=== PATIENT | female | born 1940 | race Caucasian/White ===

== ENCOUNTER 2022-09-23 11:35 | Observation (INO) | payer OTHER ==
[2022-09-23 11:45] VITALS: BMI 23.6
[2022-09-23] MEDS ORDERED: ACETAMINOPHEN 1000 MG/100 ML BAG IVPB ONE (12:56)
[2022-09-23] MEDS ORDERED: ACETAMINOPHEN INJECTION 100 ML IVPB ONE (13:11)
[2022-09-23 13:20] LABS: BASO % 0.2 % (0-2.0); HEMATOCRIT 36.6 % (32.4-45.2); HEMOGLOBIN 12.3 GM/dL (10.7-15.3); LYMPH % 5.8 % (8-40); MCH 29.5 pg (25.7-33.7); MCHC 33.6 g/dl (32.0-36.0); MEAN CELL VOLUME 87.9 fl (80-96); MEAN PLT VOLUME 7.1 fl (7.5-11.1); MONO % 7.7 % (3.8-10.2); NEUT % 86.3 % (42.8-82.8); PLATELET COUNT 229 10^3/uL (134-434); RBC 4.17 M/mm3 (3.60-5.2); WHITE BLOOD COUNT 10.4 K/mm3 (4.0-10.0)
[2022-09-23 13:51] LABS: BLOOD UREA NITROGEN 18.6 mg/dL (7-18); CALCIUM 8.9 mg/dL (8.5-10.1)
[2022-09-23 13:52] LABS: ALBUMIN 3.7 g/dl (3.4-5.0)
[2022-09-23 13:54] LABS: CREATININE 0.7 mg/dL (0.55-1.3)
[2022-09-23 13:56] LABS: TOT PROT 7.1 g/dl (6.4-8.2)
[2022-09-23 14:48] LABS: EPI CELLS 22 /uL (0-25.1); HYALINE CASTS 3 /uL (0-3.1); PH,URINE 6.5 (5.0-8.0); URINE APPEARANCE CLOUDY; URINE BACTERIA 1550 /uL (0-1359); URINE BILIRUBIN NEGATIVE (NEGATIVE); URINE COLOR YELLOW; URINE GLUCOSE (UA) NEGATIVE (NEGATIVE); URINE KETONE 2+ (NEGATIVE); URINE LEUK ESTERASE 2+ (NEGATIVE); URINE NITRITE NEGATIVE (NEGATIVE); URINE PROTEIN 2+ (NEGATIVE); URINE RBC 70 /uL (0-23.9); URINE WBC 301 /uL (0-25.8)
[2022-09-23 15:14] LABS: MAGNESIUM 2.2 mg/dL (1.8-2.4)
[2022-09-23 15:18] LABS: PHOSPHOROUS 1.9 mg/dL (2.5-4.9)
[2022-09-23] MEDS ORDERED: CEFTRIAXONE 1,000 MG in DEXTROSE 5%-WATER - 50 ML IVPB ONE (15:55)
[2022-09-23] MEDS ORDERED: CEFTRIAXONE 1 GM/50 ML BAG ONE (16:00)
[2022-09-23] MEDS ORDERED: CHLORTHALIDONE 25 MG TABLET PO SCH (16:00)
[2022-09-23] MEDS ORDERED: oxyCODONE HCL 5 MG TABLET PO PRN (16:06)
[2022-09-23] MEDS ORDERED: ACETAMINOPHEN 325 MG TABLET (FP) PO PRN (16:07)
[2022-09-23] MEDS ORDERED: HEPARIN NA (PORCINE) 5,000 UNITS/ML 1ML VIAL ONE (22:07)
[2022-09-23] MEDS ORDERED: ATORVASTATIN CA 40 MG TABLET (FP) ONE (22:08)
[2022-09-23] MEDS: ATORVASTATIN CA 40 MG TABLET (FP) PO SCH (22:15)
[2022-09-23] MEDS: HEPARIN NA (PORCINE) 5,000 UNITS/ML 1ML VIAL SQ SCH (22:15)
[2022-09-24 07:05] LABS: BASO % 0.6 % (0-2.0); EOS % 1.1 % (0-4.5); HEMATOCRIT 34.6 % (32.4-45.2); HEMOGLOBIN 11.8 GM/dL (10.7-15.3); MCH 30.1 pg (25.7-33.7); MCHC 34.2 g/dl (32.0-36.0); MEAN CELL VOLUME 87.9 fl (80-96); MEAN PLT VOLUME 7.4 fl (7.5-11.1); MONO % 6.7 % (3.8-10.2); NEUT % 82.6 % (42.8-82.8); PLATELET COUNT 214 10^3/uL (134-434); RBC 3.93 M/mm3 (3.60-5.2); RDW 12.8 % (11.6-15.6); WHITE BLOOD COUNT 9.3 K/mm3 (4.0-10.0)
[2022-09-24 07:19] LABS: CALCIUM 8.2 mg/dL (8.5-10.1)
[2022-09-24 07:23] LABS: CREATININE 0.5 mg/dL (0.55-1.3)
[2022-09-24] MEDS ORDERED: POTASSIUM CHLORIDE TABS 20 MEQ TABLET.ER (FP) PO SCH (10:00)
[2022-09-24] MEDS ORDERED: LOSARTAN POTASSIUM 50 MG TABLET PO SCH (10:00)
[2022-09-24] MEDS ORDERED: CHLORTHALIDONE 25 MG TABLET PO SCH (10:00)
[2022-09-24] MEDS ORDERED: POTASSIUM CHLORIDE TABS 10 MEQ TABLET.ER (FP) PO SCH ×2 (10:00)
[2022-09-24] MEDS: HEPARIN NA (PORCINE) 5,000 UNITS/ML 1ML VIAL SQ SCH ×2 (10:31→21:32)
[2022-09-24] MEDS: LEVOTHYROXINE NA 25 MCG TABLET (FP) PO SCH (10:31)
[2022-09-24] MEDS: KCL 10 MEQ IVPB 10 MEQ/100 ML INFUS.BAG IVPB SCH ×2 (10:31→11:16)
[2022-09-24] MEDS: ATORVASTATIN CA 40 MG TABLET (FP) PO SCH (21:32)
[2022-09-25] MEDS: LEVOTHYROXINE NA 25 MCG TABLET (FP) PO SCH (09:51)
[2022-09-25] MEDS: HEPARIN NA (PORCINE) 5,000 UNITS/ML 1ML VIAL SQ SCH ×2 (09:51→21:18)
[2022-09-25] MEDS: ATORVASTATIN CA 40 MG TABLET (FP) PO SCH (21:18)
[2022-09-26 07:21] LABS: EOS % 5.3 % (0-4.5); HEMOGLOBIN 12.3 GM/dL (10.7-15.3); LYMPH % 21.4 % (8-40); MCH 29.8 pg (25.7-33.7); MCHC 34.1 g/dl (32.0-36.0); MEAN CELL VOLUME 87.5 fl (80-96); MEAN PLT VOLUME 7.5 fl (7.5-11.1); MONO % 11.1 % (3.8-10.2); NEUT % 61.2 % (42.8-82.8); PLATELET COUNT 275 10^3/uL (134-434); RBC 4.11 M/mm3 (3.60-5.2); RDW 12.7 % (11.6-15.6); WHITE BLOOD COUNT 6.8 K/mm3 (4.0-10.0)
[2022-09-26] MEDS ORDERED: SODIUM CHLORIDE 0.45% 1,000 ML IV SCH (07:45)
[2022-09-26] MEDS ORDERED: PIPERACILLIN/TAZOB 3.375 GM 3.375 GM in DEXTROSE 5%-WATER - 50 ML IVPB SCH (07:45)
[2022-09-26 07:56] LABS: CHLORIDE 106 mmol/L (98-107); SODIUM 138 mmol/L (136-145)
[2022-09-26 07:58] LABS: ANION GAP 5 MMOL/L (8-16); CALCIUM 8.5 mg/dL (8.5-10.1); CO2 28 mmol/L (21-32); GLUCOSE,RANDOM 99 mg/dL (74-106); MAGNESIUM 2.2 mg/dL (1.8-2.4)
[2022-09-26 07:59] LABS: BLOOD UREA NITROGEN 11.3 mg/dL (7-18)
[2022-09-26 08:02] LABS: CREATININE 0.6 mg/dL (0.55-1.3); PHOSPHOROUS 3.2 mg/dL (2.5-4.9); SGPT/ALT 30 U/L (13-61)
[2022-09-26 08:03] LABS: BILIRUBIN,TOTAL 0.6 mg/dL (0.2-1); SGOT/AST 33 U/L (15-37); TOT PROT 6.2 g/dl (6.4-8.2)
[2022-09-26 08:04] LABS: ALK PHOS 79 U/L (45-117)
[2022-09-26] MEDS: HEPARIN NA (PORCINE) 5,000 UNITS/ML 1ML VIAL SQ SCH ×2 (09:49→21:14)
[2022-09-26] MEDS: amLODIPine BESYLATE 5 MG TABLET (FP) PO SCH (09:49)
[2022-09-26] MEDS: LEVOTHYROXINE NA 25 MCG TABLET (FP) PO SCH (09:49)
[2022-09-26] MEDS ORDERED: CEFTRIAXONE 1 GM in DEXTROSE 5%-WATER - 50 ML IVPB SCH (10:00)
[2022-09-26] MEDS: ACETAMINOPHEN 325 MG TABLET (FP) PO PRN (14:31)
[2022-09-26] MEDS: ATORVASTATIN CA 40 MG TABLET (FP) PO SCH (21:57)
[2022-09-27 07:47] LABS: ALBUMIN 2.9 g/dl (3.4-5.0); BLOOD UREA NITROGEN 11.8 mg/dL (7-18); CALCIUM 8.5 mg/dL (8.5-10.1); MAGNESIUM 2.1 mg/dL (1.8-2.4)
[2022-09-27 07:50] LABS: CREATININE 0.5 mg/dL (0.55-1.3); PHOSPHOROUS 3.4 mg/dL (2.5-4.9)
[2022-09-27 07:51] LABS: BILIRUBIN,TOTAL 0.4 mg/dL (0.2-1); TOT PROT 6.1 g/dl (6.4-8.2)
[2022-09-27 07:52] LABS: BASO % 1.2 % (0-2.0); EOS % 6.1 % (0-4.5); HEMATOCRIT 36.3 % (32.4-45.2); HEMOGLOBIN 12.4 GM/dL (10.7-15.3); LYMPH % 29.1 % (8-40); MCH 30.7 pg (25.7-33.7); MCHC 34.1 g/dl (32.0-36.0); MEAN PLT VOLUME 7.6 fl (7.5-11.1); MONO % 11.4 % (3.8-10.2); NEUT % 52.2 % (42.8-82.8); PLATELET COUNT 310 10^3/uL (134-434); RBC 4.03 M/mm3 (3.60-5.2); RDW 12.6 % (11.6-15.6); WHITE BLOOD COUNT 6.5 K/mm3 (4.0-10.0)
[2022-09-27] MEDS: amLODIPine BESYLATE 5 MG TABLET (FP) PO SCH (10:51)
[2022-09-27] MEDS: LEVOTHYROXINE NA 25 MCG TABLET (FP) PO SCH (10:51)
[2022-09-27] MEDS: HEPARIN NA (PORCINE) 5,000 UNITS/ML 1ML VIAL SQ SCH ×2 (10:51→21:29)
[2022-09-27] MEDS: ATORVASTATIN CA 40 MG TABLET (FP) PO SCH (21:29)
[2022-09-28 07:09] LABS: BASO % 1.1 % (0-2.0); EOS % 4.9 % (0-4.5); HEMATOCRIT 33.2 % (32.4-45.2); HEMOGLOBIN 11.5 GM/dL (10.7-15.3); LYMPH % 26.1 % (8-40); MCH 30.9 pg (25.7-33.7); MCHC 34.7 g/dl (32.0-36.0); MEAN PLT VOLUME 7.4 fl (7.5-11.1); MONO % 10.2 % (3.8-10.2); NEUT % 57.7 % (42.8-82.8); PLATELET COUNT 317 10^3/uL (134-434); RBC 3.72 M/mm3 (3.60-5.2); WHITE BLOOD COUNT 7.3 K/mm3 (4.0-10.0)
[2022-09-28 07:24] LABS: CALCIUM 8.8 mg/dL (8.5-10.1)
[2022-09-28 07:25] LABS: ALBUMIN 2.8 g/dl (3.4-5.0); BLOOD UREA NITROGEN 13.2 mg/dL (7-18); MAGNESIUM 2.1 mg/dL (1.8-2.4)
[2022-09-28 07:28] LABS: CREATININE 0.6 mg/dL (0.55-1.3); PHOSPHOROUS 3.4 mg/dL (2.5-4.9)
[2022-09-28 07:30] LABS: BILIRUBIN,TOTAL 0.5 mg/dL (0.2-1)
[2022-09-28] MEDS: LEVOTHYROXINE NA 25 MCG TABLET (FP) PO SCH (10:06)
[2022-09-28] MEDS: HEPARIN NA (PORCINE) 5,000 UNITS/ML 1ML VIAL SQ SCH ×2 (10:06→21:16)
[2022-09-28] MEDS: ATORVASTATIN CA 40 MG TABLET (FP) PO SCH (21:16)
[2022-09-28] MEDS: ACETAMINOPHEN 325 MG TABLET (FP) PO PRN (21:23)
[2022-09-29] MEDS: HEPARIN NA (PORCINE) 5,000 UNITS/ML 1ML VIAL SQ SCH (10:06)
[2022-09-29] MEDS: LEVOTHYROXINE NA 25 MCG TABLET (FP) PO SCH (10:07)
[2022-09-29] MEDS: ACETAMINOPHEN 325 MG TABLET (FP) PO PRN (21:03)
[2022-09-29] MEDS: ASPIRIN 81 MG CHEWABLE TABLETS PO SCH (21:04)
[2022-09-29] MEDS: ATORVASTATIN CA 40 MG TABLET (FP) PO SCH (21:04)
[2022-09-30] MEDS: LEVOTHYROXINE NA 25 MCG TABLET (FP) PO SCH (06:31)
[2022-09-30] MEDS: MULTIVITAMINS (DAILY MVI) TABLET (FP) PO SCH (09:37)
[2022-09-30] MEDS: ENOXAPARIN NA (PORCINE) 40 MG/0.4 ML DISP.SYRIN SQ SCH (09:37)
[2022-09-30] MEDS: ASPIRIN 81 MG CHEWABLE TABLETS PO SCH (21:57)
[2022-09-30] MEDS: ATORVASTATIN CA 40 MG TABLET (FP) PO SCH (21:57)
[2022-10-01 06:16] VITALS: TEMP 98
[2022-10-01] MEDS: LEVOTHYROXINE NA 25 MCG TABLET (FP) PO SCH (06:25)
[2022-10-01 07:27] LABS: BASO % 1.2 % (0-2.0); EOS % 4.9 % (0-4.5); HEMATOCRIT 36.3 % (32.4-45.2); HEMOGLOBIN 12.4 GM/dL (10.7-15.3); LYMPH % 29.4 % (8-40); MCH 30.1 pg (25.7-33.7); MEAN CELL VOLUME 88.7 fl (80-96); MEAN PLT VOLUME 6.9 fl (7.5-11.1); MONO % 10.7 % (3.8-10.2); NEUT % 53.8 % (42.8-82.8); PLATELET COUNT 373 10^3/uL (134-434); RDW 13.1 % (11.6-15.6); WHITE BLOOD COUNT 7.3 K/mm3 (4.0-10.0)
[2022-10-01 07:53] LABS: BLOOD UREA NITROGEN 13.4 mg/dL (7-18)
[2022-10-01 07:56] LABS: CREATININE 0.7 mg/dL (0.55-1.3)
[2022-10-01 09:19] VITALS: BP 113/58; PULSE 80; RESP 18
[2022-10-01] MEDS: ENOXAPARIN NA (PORCINE) 40 MG/0.4 ML DISP.SYRIN SQ SCH (09:23)
[2022-10-01] MEDS: MULTIVITAMINS (DAILY MVI) TABLET (FP) PO SCH (09:24)
== END 2022-10-01 15:20 | disposition home health service (06) ==
LOC: JER 11:35 → JERBED 13:35 → JICU 23:19 → J2W 23:38
PROVIDERS: ADMIT Internal Medicine; ATTEND Internal Medicine
PROC: 3E033NZ Introduction of Analgesics, Hypnotics, Sedatives into Peripheral Vein, Percutaneous Approach (ICD-10-PCS; principal; 2022-09-23)
PROC: 3E03329 Introduction of Other Anti-infective into Peripheral Vein, Percutaneous Approach (ICD-10-PCS; 2022-09-23)
PROC: 3E023GC Introduction of Other Therapeutic Substance into Muscle, Percutaneous Approach (ICD-10-PCS; 2022-09-23)
PROC: 3E0337Z Introduction of Electrolytic and Water Balance Substance into Peripheral Vein, Percutaneous Approach (ICD-10-PCS; 2022-09-23)
DX: N39.0 Urinary tract infection, site not specified (principal); S42.302A Unspecified fracture of shaft of humerus, left arm, initial encounter for closed fracture; I65.29 Occlusion and stenosis of unspecified carotid artery; W18.39XA Other fall on same level, initial encounter; Y93.89 Activity, other specified; Y92.002 Bathroom of unspecified non-institutional (private) residence as the place of occurrence of the external cause; E03.9 Hypothyroidism, unspecified; Z87.891 Personal history of nicotine dependence; E78.00 Pure hypercholesterolemia, unspecified; R94.31 Abnormal electrocardiogram [ECG] [EKG]
CPT/HCPCS: 0241U-QW; 36415; 70450-TC; 71045-TC-FY; 71250-TC; 72125-TC; 73030-TC-LT-FY; 73060-TC-LT-FY; 73070-TC-LT-FY; 73090-TC-LT-FY; 73110-TC-LT-FY; 80048; 80053; 81003; 82550; 82553; 82607; 82746; 83735; 83880; 84100; 84443; 84484; 85025; 87086; 87186; 93005; 93010; 93306-TC; 93880-TC; 95816; 96361; 96365; 96366; 96368; 96372; 96375; 97116-GP; 97162-GP; 99285-25; C9803-CS; G0378; J1644; U0003; U0005

== ENCOUNTER 2023-01-05 14:29 | Inpatient (IN) | payer OTHER ==
[2023-01-05] MEDS ORDERED: MIDAZOLAM HCL 2 MG/2 ML SINGLE DOSE VIAL ONE (15:16)
[2023-01-05 15:41] LABS: BASO % 0.9 % (0-2.0); EOS % 0.7 % (0-4.5); HEMATOCRIT 38.8 % (32.4-45.2); HEMOGLOBIN 13.1 GM/dL (10.7-15.3); MCH 30.2 pg (25.7-33.7); MCHC 33.7 g/dl (32.0-36.0); MEAN CELL VOLUME 89.7 fl (80-96); MEAN PLT VOLUME 7.6 fl (7.5-11.1); MONO % 6.4 % (3.8-10.2); PLATELET COUNT 269 10^3/uL (134-434); RBC 4.33 M/mm3 (3.60-5.2); RDW 13.3 % (11.6-15.6); WHITE BLOOD COUNT 6.4 K/mm3 (4.0-10.0)
[2023-01-05 15:48] LABS: INR 1.02 (0.83-1.09); PROTHROMBIN TIME (PATIENT) 11.8 SEC (9.7-13.0)
[2023-01-05 15:51] LABS: ACTIVATED PTT 28.2 SECONDS (25.2-36.5)
[2023-01-05 16:00] LABS: ALBUMIN 3.9 g/dl (3.4-5.0); BLOOD UREA NITROGEN 11.8 mg/dL (7-18)
[2023-01-05 16:03] LABS: CREATININE 0.7 mg/dL (0.55-1.3)
[2023-01-05 16:04] LABS: TOT PROT 7.7 g/dl (6.4-8.2)
[2023-01-05 16:05] LABS: BILIRUBIN,TOTAL 0.4 mg/dL (0.2-1)
[2023-01-05 16:30] LABS: URINE APPEARANCE CLEAR; URINE BILIRUBIN NEGATIVE (NEGATIVE); URINE COLOR YELLOW; URINE GLUCOSE (UA) NEGATIVE (NEGATIVE); URINE KETONE 1+ (NEGATIVE); URINE LEUK ESTERASE NEGATIVE (NEGATIVE); URINE NITRITE NEGATIVE (NEGATIVE); URINE PROTEIN TRACE (NEGATIVE); URINE UROBILINOGEN 0.2 mg/dL (0.2-1.0)
[2023-01-05] MEDS ORDERED: MIDAZOLAM HCL 2 MG/2 ML SINGLE DOSE VIAL IVPUSH ONE (16:43)
[2023-01-05] MEDS: levETIRAcetam 500 MG TABLET (FP) PO SCH (22:26)
[2023-01-05] MEDS: ATORVASTATIN CA 40 MG TABLET (FP) PO SCH (22:26)
[2023-01-05] MEDS: ASPIRIN 81 MG CHEWABLE TABLETS PO SCH (22:27)
[2023-01-06 06:40] LABS: BASO % 0.9 % (0-2.0); EOS % 2.4 % (0-4.5); HEMATOCRIT 35.5 % (32.4-45.2); LYMPH % 26.7 % (8-40); MCH 30.3 pg (25.7-33.7); MCHC 33.8 g/dl (32.0-36.0); MEAN CELL VOLUME 89.4 fl (80-96); MEAN PLT VOLUME 7.3 fl (7.5-11.1); MONO % 8.9 % (3.8-10.2); NEUT % 61.1 % (42.8-82.8); PLATELET COUNT 247 10^3/uL (134-434); RBC 3.97 M/mm3 (3.60-5.2); RDW 12.8 % (11.6-15.6); WHITE BLOOD COUNT 5.9 K/mm3 (4.0-10.0)
[2023-01-06 06:58] LABS: POTASSIUM 3.2 mmol/L (3.5-5.1)
[2023-01-06] MEDS: LEVOTHYROXINE NA 25 MCG TABLET (FP) PO SCH (07:00)
[2023-01-06 07:01] LABS: CALCIUM 8.7 mg/dL (8.5-10.1)
[2023-01-06 07:02] LABS: ALBUMIN 3.3 g/dl (3.4-5.0); BLOOD UREA NITROGEN 10.7 mg/dL (7-18); MAGNESIUM 2.1 mg/dL (1.8-2.4)
[2023-01-06 07:05] LABS: CREATININE 0.5 mg/dL (0.55-1.3)
[2023-01-06 07:06] LABS: TOT PROT 6.5 g/dl (6.4-8.2)
[2023-01-06] MEDS: amLODIPine BESYLATE 5 MG TABLET (FP) PO SCH ×2 (09:06→09:20)
[2023-01-06] MEDS: MULTIVITAMINS (DAILY MVI) TABLET (FP) PO SCH (09:06)
[2023-01-06] MEDS: ENOXAPARIN NA (PORCINE) 40 MG/0.4 ML DISP.SYRIN SQ SCH (09:06)
[2023-01-06] MEDS: levETIRAcetam 500 MG TABLET (FP) PO SCH ×2 (09:06→21:45)
[2023-01-06] MEDS: KCL 10 MEQ IVPB 10 MEQ/100 ML INFUS.BAG IVPB SCH ×2 (09:06→11:25)
[2023-01-06] MEDS ORDERED: CHLORTHALIDONE 25 MG TABLET PO SCH (10:00)
[2023-01-06] MEDS ORDERED: SODIUM CHLORIDE 250 ML IV STA (11:06)
[2023-01-06] MEDS: ATORVASTATIN CA 40 MG TABLET (FP) PO SCH (21:45)
[2023-01-06] MEDS: ASPIRIN 81 MG CHEWABLE TABLETS PO SCH (21:45)
[2023-01-07] MEDS: LEVOTHYROXINE NA 25 MCG TABLET (FP) PO SCH (06:01)
[2023-01-07 08:08] LABS: BASO % 0.9 % (0-2.0); EOS % 5.3 % (0-4.5); HEMATOCRIT 37.3 % (32.4-45.2); HEMOGLOBIN 12.4 GM/dL (10.7-15.3); LYMPH % 24.3 % (8-40); MCH 30.1 pg (25.7-33.7); MCHC 33.3 g/dl (32.0-36.0); MEAN CELL VOLUME 90.4 fl (80-96); MEAN PLT VOLUME 7.7 fl (7.5-11.1); MONO % 6.4 % (3.8-10.2); NEUT % 63.1 % (42.8-82.8); PLATELET COUNT 249 10^3/uL (134-434); RBC 4.13 M/mm3 (3.60-5.2); WHITE BLOOD COUNT 5.1 K/mm3 (4.0-10.0)
[2023-01-07 08:30] LABS: POTASSIUM 3.6 mmol/L (3.5-5.1)
[2023-01-07 08:37] LABS: CALCIUM 9.4 mg/dL (8.5-10.1)
[2023-01-07 08:38] LABS: ALBUMIN 3.5 g/dl (3.4-5.0); BLOOD UREA NITROGEN 8.4 mg/dL (7-18); MAGNESIUM 2.2 mg/dL (1.8-2.4); PHOSPHOROUS 2.9 mg/dL (2.5-4.9)
[2023-01-07 08:39] LABS: BILIRUBIN,TOTAL 0.6 mg/dL (0.2-1); TOT PROT 7.1 g/dl (6.4-8.2)
[2023-01-07 08:41] LABS: CREATININE 0.6 mg/dL (0.55-1.3)
[2023-01-07] MEDS: MULTIVITAMINS (DAILY MVI) TABLET (FP) PO SCH (09:05)
[2023-01-07] MEDS: amLODIPine BESYLATE 2.5 MG TABLET (FP) PO SCH (09:05)
[2023-01-07] MEDS: levETIRAcetam 500 MG TABLET (FP) PO SCH ×2 (09:05→22:51)
[2023-01-07] MEDS: ENOXAPARIN NA (PORCINE) 40 MG/0.4 ML DISP.SYRIN SQ SCH (09:07)
[2023-01-07] MEDS ORDERED: SODIUM CHLORIDE 1,000 ML IV SCH (09:30)
[2023-01-07 11:44] VITALS: BMI 24.3
[2023-01-07] MEDS: ASPIRIN 81 MG CHEWABLE TABLETS PO SCH (22:51)
[2023-01-07] MEDS: ATORVASTATIN CA 40 MG TABLET (FP) PO SCH (22:51)
[2023-01-08] MEDS: LEVOTHYROXINE NA 25 MCG TABLET (FP) PO SCH (06:49)
[2023-01-08 10:20] VITALS: RESP 20
[2023-01-08] MEDS: MULTIVITAMINS (DAILY MVI) TABLET (FP) PO SCH (10:26)
[2023-01-08] MEDS: ENOXAPARIN NA (PORCINE) 40 MG/0.4 ML DISP.SYRIN SQ SCH (10:26)
[2023-01-08] MEDS: amLODIPine BESYLATE 2.5 MG TABLET (FP) PO SCH (10:26)
[2023-01-08] MEDS: levETIRAcetam 500 MG TABLET (FP) PO SCH (10:26)
[2023-01-08] MEDS ORDERED: SODIUM CHLORIDE 1,000 ML IV SCH (12:30)
[2023-01-08 15:44] VITALS: TEMP 98.5
[2023-01-08 16:08] VITALS: BP 114/54; PULSE 80
== END 2023-01-08 18:45 | disposition home health service (06) | DRG 101 ==
LOC: JER 14:29 → JERBED 16:22 → J4W 17:27
PROVIDERS: ADMIT Student in an Organized Health Care Education/Training Program; ATTEND Internal Medicine
DX: G40.89 Other seizures (principal); R55 Syncope and collapse; I10 Essential (primary) hypertension; E03.9 Hypothyroidism, unspecified
CPT/HCPCS: 36415; 70450-TC; 70553-TC; 71045-TC-FY; 72125-TC; 73521-TC-FY; 80053; 81003; 82550; 82553; 83605; 83735; 84100; 84439; 84443; 84484; 85025; 85610; 85730; 86850; 86900; 86901; 87040; 87086; 87186; 93005; 93010; 95816; 97116-GP; 97161-GP; 99285-25

== ENCOUNTER 2023-06-22 07:05 | Observation (INO) | payer OTHER ==
[2023-06-22] MEDS ORDERED: levETIRAcetam 500 MG/5 ML INJECTION VIAL IVPB ONE ×2 (08:10→08:20)
[2023-06-22 08:54] LABS: BASO % 0.8 % (0-2.0); EOS % 1.5 % (0-4.5); HEMATOCRIT 38.1 % (32.4-45.2); HEMOGLOBIN 12.9 GM/dL (10.7-15.3); LYMPH % 16.6 % (8-40); MCH 30.5 pg (25.7-33.7); MCHC 33.7 g/dl (32.0-36.0); MEAN CELL VOLUME 90.3 fl (80-96); MEAN PLT VOLUME 7.3 fl (7.5-11.1); MONO % 5.1 % (3.8-10.2); PLATELET COUNT 296 10^3/uL (134-434); RBC 4.22 M/mm3 (3.60-5.2); RDW 15.4 % (11.6-15.6); WHITE BLOOD COUNT 6.6 K/mm3 (4.0-10.0)
[2023-06-22 08:56] LABS: INR 0.9 (0.83-1.09); PROTHROMBIN TIME (PATIENT) 10.5 SEC (9.7-13.0)
[2023-06-22 08:59] LABS: ACTIVATED PTT 26.8 SECONDS (25.2-36.5)
[2023-06-22 09:08] LABS: URINE APPEARANCE CLEAR; URINE BILIRUBIN NEGATIVE (NEGATIVE); URINE COLOR YELLOW; URINE GLUCOSE (UA) NEGATIVE (NEGATIVE); URINE KETONE NEGATIVE (NEGATIVE); URINE LEUK ESTERASE NEGATIVE (NEGATIVE); URINE NITRITE NEGATIVE (NEGATIVE); URINE PROTEIN TRACE (NEGATIVE); URINE UROBILINOGEN 0.2 mg/dL (0.2-1.0)
[2023-06-22 09:20] LABS: POTASSIUM 3.9 mmol/L (3.5-5.1)
[2023-06-22 09:22] LABS: ALBUMIN 3.9 g/dl (3.4-5.0); BLOOD UREA NITROGEN 11.3 mg/dL (7-18); CALCIUM 8.8 mg/dL (8.5-10.1); MAGNESIUM 2.3 mg/dL (1.8-2.4)
[2023-06-22 09:25] LABS: CREATININE 0.7 mg/dL (0.55-1.3)
[2023-06-22 09:27] LABS: BILIRUBIN,TOTAL 0.2 mg/dL (0.2-1); TOT PROT 7.7 g/dl (6.4-8.2)
[2023-06-22] MEDS: levETIRAcetam 500 MG/5 ML INJECTION VIAL IVPB SCH (21:55)
[2023-06-22] MEDS: HEPARIN NA (PORCINE) 5,000 UNITS/ML 1ML VIAL SQ SCH (21:55)
[2023-06-23] MEDS: LEVOTHYROXINE NA 75 MCG TABLET (FP) PO SCH (06:50)
[2023-06-23 07:23] LABS: BASO % 0.7 % (0-2.0); EOS % 2.3 % (0-4.5); HEMATOCRIT 35.5 % (32.4-45.2); HEMOGLOBIN 12.1 GM/dL (10.7-15.3); LYMPH % 20.1 % (8-40); MCH 30.7 pg (25.7-33.7); MEAN CELL VOLUME 90.2 fl (80-96); MONO % 9.1 % (3.8-10.2); NEUT % 67.8 % (42.8-82.8); PLATELET COUNT 254 10^3/uL (134-434); RBC 3.93 M/mm3 (3.60-5.2); RDW 14.9 % (11.6-15.6); WHITE BLOOD COUNT 6.6 K/mm3 (4.0-10.0)
[2023-06-23 07:48] LABS: POTASSIUM 3.7 mmol/L (3.5-5.1)
[2023-06-23 07:51] LABS: CALCIUM 8.5 mg/dL (8.5-10.1)
[2023-06-23 07:52] LABS: BLOOD UREA NITROGEN 12.9 mg/dL (7-18)
[2023-06-23 07:55] LABS: CREATININE 0.6 mg/dL (0.55-1.3)
[2023-06-23] MEDS: LORATADINE 10 MG TABLET PO SCH (09:35)
[2023-06-23] MEDS: levETIRAcetam 500 MG/5 ML INJECTION VIAL IVPB SCH ×2 (09:35→22:08)
[2023-06-23] MEDS: HEPARIN NA (PORCINE) 5,000 UNITS/ML 1ML VIAL SQ SCH ×2 (09:35→22:07)
[2023-06-23] MEDS: ROSUVASTATIN CA 20 MG TABLET PO SCH (22:07)
[2023-06-24] MEDS: LEVOTHYROXINE NA 75 MCG TABLET (FP) PO SCH (06:13)
[2023-06-24] MEDS: HEPARIN NA (PORCINE) 5,000 UNITS/ML 1ML VIAL SQ SCH ×2 (10:34→22:01)
[2023-06-24] MEDS: levETIRAcetam 500 MG/5 ML INJECTION VIAL IVPB SCH ×2 (10:34→22:01)
[2023-06-24] MEDS: LORATADINE 10 MG TABLET PO SCH (10:34)
[2023-06-24 10:57] LABS: POTASSIUM 3.9 mmol/L (3.5-5.1)
[2023-06-24 11:04] LABS: CALCIUM 8.6 mg/dL (8.5-10.1)
[2023-06-24 11:05] LABS: ALBUMIN 3.3 g/dl (3.4-5.0); BLOOD UREA NITROGEN 7.4 mg/dL (7-18)
[2023-06-24 11:08] LABS: CREATININE 0.5 mg/dL (0.55-1.3)
[2023-06-24 11:09] LABS: BILIRUBIN,TOTAL 0.8 mg/dL (0.2-1); TOT PROT 6.8 g/dl (6.4-8.2)
[2023-06-24 16:14] VITALS: BMI 22.7
[2023-06-24] MEDS: ROSUVASTATIN CA 20 MG TABLET PO SCH (22:01)
[2023-06-25] MEDS: LEVOTHYROXINE NA 75 MCG TABLET (FP) PO SCH (07:32)
[2023-06-25] MEDS: HEPARIN NA (PORCINE) 5,000 UNITS/ML 1ML VIAL SQ SCH (09:55)
[2023-06-25] MEDS: LORATADINE 10 MG TABLET PO SCH (09:56)
[2023-06-25] MEDS: levETIRAcetam 500 MG/5 ML INJECTION VIAL IVPB SCH (09:56)
[2023-06-25 14:34] VITALS: BP 116/58; PULSE 75; RESP 16; TEMP 98.2
== END 2023-06-25 15:44 | disposition home or self-care (01) ==
LOC: JER 07:05 → JERBED 10:22 → J7W 14:37
PROVIDERS: ADMIT Internal Medicine; ATTEND Internal Medicine
PROC: 3E033NZ Introduction of Analgesics, Hypnotics, Sedatives into Peripheral Vein, Percutaneous Approach (ICD-10-PCS; principal; 2023-06-22)
DX: R56.9 Unspecified convulsions (principal); E03.9 Hypothyroidism, unspecified; E78.5 Hyperlipidemia, unspecified; I10 Essential (primary) hypertension; R55 Syncope and collapse; Z87.891 Personal history of nicotine dependence
CPT/HCPCS: 0241U-QW; 36415; 70450-TC; 71045-TC-FY; 72125-TC; 72170-TC-FY; 80048; 80053; 81003; 83735; 84484; 85025; 85610; 85730; 87086; 93005; 93010; 95816; 96374; 96375; 96376; 97116-GP; 97162-GP; 99285-25; G0378; J1644

== ENCOUNTER 2024-03-24 10:21 | Observation (INO) | payer OTHER ==
[2024-03-24 11:37] LABS: BASO % 0.3 % (0-2.0); EOS % 0.2 % (0-4.5); HEMATOCRIT 42.4 % (32.4-45.2); HEMOGLOBIN 14.3 GM/dL (10.7-15.3); LYMPH % 7.1 % (8-40); MCH 30.1 pg (25.7-33.7); MCHC 33.9 g/dl (32.0-36.0); MEAN CELL VOLUME 88.7 fl (80-96); MEAN PLT VOLUME 6.7 fl (7.5-11.1); MONO % 6.1 % (3.8-10.2); NEUT % 86.3 % (42.8-82.8); PLATELET COUNT 319 10^3/uL (134-434); RBC 4.77 M/mm3 (3.60-5.2); RDW 13.7 % (11.6-15.6); WHITE BLOOD COUNT 9.6 K/mm3 (4.0-10.0)
[2024-03-24 11:50] LABS: POTASSIUM 5.6 mmol/L (3.5-5.1)
[2024-03-24 11:51] LABS: INR 1.03 (0.83-1.09); PROTHROMBIN TIME (PATIENT) 11.6 SEC (9.7-13.0)
[2024-03-24 11:52] LABS: CALCIUM 9.2 mg/dL (8.5-10.1)
[2024-03-24 11:53] LABS: ALBUMIN 3.6 g/dl (3.4-5.0); BLOOD UREA NITROGEN 16.1 mg/dL (7-18)
[2024-03-24 11:56] LABS: CREATININE 0.7 mg/dL (0.55-1.3)
[2024-03-24 11:57] LABS: BILIRUBIN,TOTAL 0.9 mg/dL (0.2-1); TOT PROT 7.9 g/dl (6.4-8.2)
[2024-03-24] MEDS: SODIUM CHLORIDE 0.9% 500 ML INFUS.BAG IV ONE (12:45)
[2024-03-24 12:53] LABS: EPI CELLS 17 /uL (0-25.1); HYALINE CASTS 3 /uL (0-3.1); URINE APPEARANCE CLEAR; URINE BACTERIA 4 /uL (0-1359); URINE BILIRUBIN NEGATIVE (NEGATIVE); URINE COLOR YELLOW; URINE GLUCOSE (UA) NEGATIVE (NEGATIVE); URINE KETONE 3+ (NEGATIVE); URINE LEUK ESTERASE NEGATIVE (NEGATIVE); URINE NITRITE NEGATIVE (NEGATIVE); URINE PROTEIN 1+ (NEGATIVE); URINE RBC 95 /uL (0-23.9); URINE UROBILINOGEN 0.2 mg/dL (0.2-1.0); URINE WBC 29 /uL (0-25.8)
[2024-03-24 14:38] LABS: MAGNESIUM 2.2 mg/dL (1.8-2.4)
[2024-03-24 15:37] LABS: ALBUMIN 3.4 g/dl (3.4-5.0); BLOOD UREA NITROGEN 16.7 mg/dL (7-18)
[2024-03-24 15:40] LABS: CREATININE 0.6 mg/dL (0.55-1.3)
[2024-03-24 15:41] LABS: BILIRUBIN,TOTAL 0.7 mg/dL (0.2-1)
[2024-03-24 15:42] LABS: TOT PROT 7.1 g/dl (6.4-8.2)
[2024-03-24] MEDS: ASPIRIN COATED 81 MG TABLET.EC PO SCH (20:42)
[2024-03-24] MEDS: CLOPIDOGREL BISULFATE 75 MG TABLET (FP) PO SCH (20:42)
[2024-03-24] MEDS ORDERED: DONEPEZIL HCL 5 MG TABLET (FP) ONE (23:09)
[2024-03-24] MEDS ORDERED: levETIRAcetam 500 MG TABLET (FP) PO ONE (23:09)
[2024-03-24] MEDS ORDERED: HEPARIN NA (PORCINE) 5,000 UNITS/ML 1ML VIAL ONE (23:09)
[2024-03-24] MEDS: levETIRAcetam 500 MG TABLET (FP) PO SCH (23:14)
[2024-03-24] MEDS: HEPARIN NA (PORCINE) 5,000 UNITS/ML 1ML VIAL SQ SCH (23:14)
[2024-03-24] MEDS: DONEPEZIL HCL 5 MG TABLET (FP) PO SCH (23:14)
[2024-03-25 05:08] VITALS: BMI 25.9
[2024-03-25] MEDS: LEVOTHYROXINE NA 75 MCG TABLET (FP) PO SCH (06:07)
[2024-03-25 09:58] LABS: BASO % 0.8 % (0-2.0); EOS % 3.8 % (0-4.5); HEMATOCRIT 36.2 % (32.4-45.2); HEMOGLOBIN 12.3 GM/dL (10.7-15.3); LYMPH % 22.3 % (8-40); MCH 30.4 pg (25.7-33.7); MEAN CELL VOLUME 89.5 fl (80-96); MEAN PLT VOLUME 6.9 fl (7.5-11.1); MONO % 10.7 % (3.8-10.2); NEUT % 62.4 % (42.8-82.8); PLATELET COUNT 258 10^3/uL (134-434); RBC 4.04 M/mm3 (3.60-5.2); RDW 13.9 % (11.6-15.6); WHITE BLOOD COUNT 6.7 K/mm3 (4.0-10.0)
[2024-03-25] MEDS ORDERED: ENOXAPARIN NA (PORCINE) 40 MG/0.4 ML DISP.SYRIN SQ SCH (10:00)
[2024-03-25] MEDS: ROSUVASTATIN CA 20 MG TABLET PO SCH (10:09)
[2024-03-25] MEDS: SERTRALINE HCL 25 MG TABLET (FP) PO SCH (10:10)
[2024-03-25] MEDS: TOLTERODINE TARTRATE LA 2 MG CAP.SR.24H PO SCH (10:10)
[2024-03-25 11:00] LABS: POTASSIUM 3.4 mmol/L (3.5-5.1)
[2024-03-25 11:11] LABS: CALCIUM 8.8 mg/dL (8.5-10.1)
[2024-03-25 11:12] LABS: ALBUMIN 2.9 g/dl (3.4-5.0); BLOOD UREA NITROGEN 15.7 mg/dL (7-18); MAGNESIUM 2.2 mg/dL (1.8-2.4)
[2024-03-25 11:15] LABS: CREATININE 0.5 mg/dL (0.55-1.3); PHOSPHOROUS 2.4 mg/dL (2.5-4.9)
[2024-03-25 11:16] LABS: BILIRUBIN,TOTAL 0.8 mg/dL (0.2-1); TOT PROT 5.9 g/dl (6.4-8.2)
[2024-03-25] MEDS: POTASSIUM CHLORIDE ORAL LIQUID 20 MEQ/15 ML PO ONE (14:35)
[2024-03-25 15:10] VITALS: RESP 18
[2024-03-26 08:00] LABS: HEMATOCRIT 35.4 % (32.4-45.2); HEMOGLOBIN 11.9 GM/dL (10.7-15.3); MCH 30.3 pg (25.7-33.7); MCHC 33.5 g/dl (32.0-36.0); MEAN CELL VOLUME 90.3 fl (80-96); MEAN PLT VOLUME 7.3 fl (7.5-11.1); PLATELET COUNT 255 10^3/uL (134-434); RBC 3.92 M/mm3 (3.60-5.2); RDW 13.6 % (11.6-15.6); WHITE BLOOD COUNT 7.2 K/mm3 (4.0-10.0)
[2024-03-26 08:16] LABS: POTASSIUM 3.8 mmol/L (3.5-5.1)
[2024-03-26 08:19] LABS: BLOOD UREA NITROGEN 12.1 mg/dL (7-18); CALCIUM 8.5 mg/dL (8.5-10.1)
[2024-03-26 08:21] LABS: CREATININE 0.5 mg/dL (0.55-1.3)
[2024-03-26 12:08] VITALS: BP 116/58; PULSE 69; TEMP 98.4
== END 2024-03-26 14:07 | disposition home health service (06) ==
LOC: JER 10:21 → JERBED 14:19 → J4S 03-25 01:14
PROVIDERS: ADMIT Internal Medicine; ATTEND Nurse Practitioner
PROC: 3E023GC Introduction of Other Therapeutic Substance into Muscle, Percutaneous Approach (ICD-10-PCS; principal; 2024-03-24)
PROC: 3E0337Z Introduction of Electrolytic and Water Balance Substance into Peripheral Vein, Percutaneous Approach (ICD-10-PCS; 2024-03-24)
DX: I25.10 Atherosclerotic heart disease of native coronary artery without angina pectoris (principal); I10 Essential (primary) hypertension; E03.9 Hypothyroidism, unspecified; E78.5 Hyperlipidemia, unspecified; R29.6 Repeated falls; Z90.49 Acquired absence of other specified parts of digestive tract; Z95.1 Presence of aortocoronary bypass graft; Z95.5 Presence of coronary angioplasty implant and graft; Z87.891 Personal history of nicotine dependence; W18.39XA Other fall on same level, initial encounter; Y93.89 Activity, other specified; Y92.89 Other specified places as the place of occurrence of the external cause; I65.21 Occlusion and stenosis of right carotid artery
CPT/HCPCS: 36415; 70450-TC; 70486-TC; 71045-TC-FY; 72125-TC; 72170-TC-FY; 73030-TC-LT-FY; 80048; 80053; 81003; 82550; 82553; 82962; 83605; 83735; 84100; 84443; 84484; 85025; 85027; 85610; 87086; 93005; 93010; 93306-TC; 93880-TC; 96372; 97116-GP; 97161-GP; 99285-25; G0378; J1644

== ENCOUNTER 2024-03-28 12:11 | Observation (INO) | payer OTHER ==
[2024-03-28 12:40] VITALS: BMI 25.8
[2024-03-28 13:06] LABS: BASO % 0.5 % (0-2.0); EOS % 4.2 % (0-4.5); HEMATOCRIT 34.4 % (32.4-45.2); HEMOGLOBIN 11.6 GM/dL (10.7-15.3); LYMPH % 18.4 % (8-40); MCHC 33.6 g/dl (32.0-36.0); MEAN CELL VOLUME 89.1 fl (80-96); MONO % 8.7 % (3.8-10.2); NEUT % 68.2 % (42.8-82.8); PLATELET COUNT 291 10^3/uL (134-434); RBC 3.86 M/mm3 (3.60-5.2); RDW 13.6 % (11.6-15.6); WHITE BLOOD COUNT 5.6 K/mm3 (4.0-10.0)
[2024-03-28 13:44] LABS: CHLORIDE 105 mmol/L (98-107); SODIUM 136 mmol/L (136-145)
[2024-03-28 13:45] LABS: CALCIUM 8.8 mg/dL (8.5-10.1)
[2024-03-28 13:46] LABS: BLOOD UREA NITROGEN 9.6 mg/dL (7-18); CO2 29 mmol/L (21-32); GLUCOSE,RANDOM 95 mg/dL (74-106)
[2024-03-28 13:49] LABS: CREATININE 0.7 mg/dL (0.55-1.3); SGOT/AST 90 U/L (15-37)
[2024-03-28 13:50] LABS: ANION GAP 2 mmol/L (4-13); POTASSIUM 6.4 mmol/L (3.5-5.1); SGPT/ALT 29 U/L (13-61)
[2024-03-28 13:51] LABS: BILIRUBIN,TOTAL 0.3 mg/dL (0.2-1); TOT PROT 6.6 g/dl (6.4-8.2)
[2024-03-28 13:52] LABS: ALK PHOS 88 U/L (45-117)
[2024-03-28] MEDS ORDERED: levETIRAcetam 500 MG TABLET (FP) PO ONE (14:54)
[2024-03-28] MEDS: levETIRAcetam 500 MG TABLET (FP) PO ONE (14:57)
[2024-03-28 15:15] LABS: POTASSIUM 6.4 mmol/L (3.5-5.1)
[2024-03-28 15:22] LABS: PH,URINE 6.5 (5.0-8.0); URINE APPEARANCE CLOUDY; URINE BILIRUBIN NEGATIVE (NEGATIVE); URINE COLOR YELLOW; URINE GLUCOSE (UA) NEGATIVE (NEGATIVE); URINE KETONE NEGATIVE (NEGATIVE); URINE LEUK ESTERASE 3+ (NEGATIVE); URINE NITRITE POSITIVE (NEGATIVE); URINE PROTEIN TRACE (NEGATIVE); URINE UROBILINOGEN 0.2 mg/dL (0.2-1.0)
[2024-03-28 15:29] LABS: EPI CELLS 7 /uL (0-25.1); HYALINE CASTS 0.73 /uL (0-3.1); URINE BACTERIA 10646 /uL (0-1359); URINE RBC 20 /uL (0-23.9); URINE WBC 747 /uL (0-25.8)
[2024-03-28] MEDS ORDERED: ACETAMINOPHEN 325 MG TABLET (FP) PO PRN (15:59)
[2024-03-28] MEDS: DONEPEZIL HCL 5 MG TABLET (FP) PO SCH (22:43)
[2024-03-28] MEDS: levETIRAcetam 500 MG TABLET (FP) PO SCH (22:44)
[2024-03-29] MEDS: LEVOTHYROXINE NA 75 MCG TABLET (FP) PO SCH (06:09)
[2024-03-29 07:15] LABS: EOS % 4.9 % (0-4.5); HEMATOCRIT 36.1 % (32.4-45.2); HEMOGLOBIN 12.2 GM/dL (10.7-15.3); LYMPH % 19.6 % (8-40); MCH 30.3 pg (25.7-33.7); MCHC 33.8 g/dl (32.0-36.0); MEAN CELL VOLUME 89.5 fl (80-96); MEAN PLT VOLUME 7.1 fl (7.5-11.1); MONO % 8.8 % (3.8-10.2); NEUT % 65.7 % (42.8-82.8); PLATELET COUNT 289 10^3/uL (134-434); RBC 4.03 M/mm3 (3.60-5.2); RDW 13.4 % (11.6-15.6); WHITE BLOOD COUNT 6.2 K/mm3 (4.0-10.0)
[2024-03-29 07:23] LABS: POTASSIUM 3.7 mmol/L (3.5-5.1)
[2024-03-29 07:28] LABS: BLOOD UREA NITROGEN 7.5 mg/dL (7-18)
[2024-03-29 07:31] LABS: CREATININE 0.6 mg/dL (0.55-1.3)
[2024-03-29 07:34] LABS: BILIRUBIN,TOTAL 0.4 mg/dL (0.2-1); TOT PROT 6.2 g/dl (6.4-8.2)
[2024-03-29] MEDS: TOLTERODINE TARTRATE LA 2 MG CAP.SR.24H PO SCH (10:35)
[2024-03-29] MEDS: ASPIRIN COATED 81 MG TABLET.EC PO SCH (10:35)
[2024-03-29] MEDS: CLOPIDOGREL BISULFATE 75 MG TABLET (FP) PO SCH (10:35)
[2024-03-29] MEDS: SERTRALINE HCL 25 MG TABLET (FP) PO SCH (10:35)
[2024-03-29 12:29] VITALS: BP 106/52; PULSE 73; RESP 20; TEMP 98.4
[2024-03-29] MEDS: NITROFURANTOIN MONOHYD/M-CRYST 100 MG CAPSULE PO ONE (13:40)
[2024-03-29] MEDS ORDERED: ROSUVASTATIN CA 20 MG TABLET PO SCH (22:00)
== END 2024-03-29 14:00 | disposition home or self-care (01) ==
LOC: JER 12:11 → JERBED 15:02 → J4W 18:58
PROVIDERS: ADMIT Internal Medicine; ATTEND Internal Medicine
DX: R56.9 Unspecified convulsions (principal); R55 Syncope and collapse; W18.39XA Other fall on same level, initial encounter; Y93.89 Activity, other specified; Y92.89 Other specified places as the place of occurrence of the external cause; F03.90 Unspecified dementia, unspecified severity, without behavioral disturbance, psychotic disturbance, mood disturbance, and anxiety; N39.0 Urinary tract infection, site not specified; E03.9 Hypothyroidism, unspecified; Z87.891 Personal history of nicotine dependence
CPT/HCPCS: 36415; 70450-TC; 70486-TC; 72125-TC; 80053; 80177; 81003; 82962; 84132; 84443; 85025; 87086; 87186; 93005; 93010; 99285-25; G0378

== ENCOUNTER 2024-04-21 12:35 | Observation (INO) | payer OTHER ==
[2024-04-21 13:10] VITALS: BMI 28.3
[2024-04-21 15:07] LABS: INR 1.04 (0.83-1.09); PROTHROMBIN TIME (PATIENT) 11.7 SEC (9.7-13.0)
[2024-04-21 15:10] LABS: ACTIVATED PTT 28.6 SECONDS (25.2-36.5)
[2024-04-21 15:47] LABS: CALCIUM 9.4 mg/dL (8.5-10.1)
[2024-04-21 15:48] LABS: ALBUMIN 3.3 g/dl (3.4-5.0); BLOOD UREA NITROGEN 10.2 mg/dL (7-18); MAGNESIUM 2.2 mg/dL (1.8-2.4)
[2024-04-21 15:51] LABS: CREATININE 0.7 mg/dL (0.55-1.3)
[2024-04-21 15:53] LABS: BILIRUBIN,TOTAL 0.3 mg/dL (0.2-1)
[2024-04-21 15:56] LABS: N-TERMINAL BNP 280.9 pg/ml (5-450)
[2024-04-21 17:52] LABS: BASO % 0.9 % (0-2.0); EOS % 2.1 % (0-4.5); HEMATOCRIT 36.5 % (32.4-45.2); HEMOGLOBIN 12.3 GM/dL (10.7-15.3); LYMPH % 16.3 % (8-40); MCH 29.8 pg (25.7-33.7); MCHC 33.6 g/dl (32.0-36.0); MEAN CELL VOLUME 88.6 fl (80-96); MEAN PLT VOLUME 6.6 fl (7.5-11.1); MONO % 7.9 % (3.8-10.2); NEUT % 72.8 % (42.8-82.8); PLATELET COUNT 363 10^3/uL (134-434); RBC 4.12 M/mm3 (3.60-5.2); RDW 13.1 % (11.6-15.6)
[2024-04-21 17:56] LABS: EPI CELLS >36 /uL (0-25.1); HYALINE CASTS 98 /uL (0-3.1); PH,URINE 6.5 (5.0-8.0); URINE APPEARANCE TURBID; URINE BACTERIA >9,000 /uL (0-1359); URINE BILIRUBIN NEGATIVE (NEGATIVE); URINE COLOR YELLOW; URINE GLUCOSE (UA) NEGATIVE (NEGATIVE); URINE KETONE NEGATIVE (NEGATIVE); URINE LEUK ESTERASE 3+ (NEGATIVE); URINE NITRITE POSITIVE (NEGATIVE); URINE PROTEIN 2+ (NEGATIVE); URINE UROBILINOGEN 0.2 mg/dL (0.2-1.0); URINE WBC 39794 /uL (0-25.8)
[2024-04-21] MEDS ORDERED: levETIRAcetam 500 MG TABLET (FP) PO ONE (18:23)
[2024-04-21] MEDS ORDERED: AMPICILLIN NA/SULBACTAM NA 3 GM/100 ML BAG IVPB ONE (18:23)
[2024-04-21] MEDS: AMPICILLIN NA/SULBACTAM NA 3 GM in SODIUM CHLORIDE 100 ML IVPB ONE (18:25)
[2024-04-21] MEDS: levETIRAcetam 500 MG TABLET (FP) PO ONE (18:25)
[2024-04-21 18:50] VITALS: RESP 18
[2024-04-21 19:16] LABS: URINE RBC 820.4 /uL (0-23.9); YEAST NONE SEEN (NEGATIVE)
[2024-04-21] MEDS: levETIRAcetam 500 MG TABLET (FP) PO SCH (22:49)
[2024-04-21] MEDS: ROSUVASTATIN CA 20 MG TABLET PO SCH (22:49)
[2024-04-21] MEDS: DONEPEZIL HCL 5 MG TABLET (FP) PO SCH (22:49)
[2024-04-22] MEDS: LEVOTHYROXINE NA 75 MCG TABLET (FP) PO SCH (06:36)
[2024-04-22 08:07] VITALS: BP 129/57; PULSE 78; TEMP 98.1
[2024-04-22 08:27] LABS: HEMOGLOBIN 11.1 GM/dL (10.7-15.3); MCHC 33.6 g/dl (32.0-36.0); MEAN CELL VOLUME 89.4 fl (80-96); MEAN PLT VOLUME 6.7 fl (7.5-11.1); PLATELET COUNT 354 10^3/uL (134-434); POTASSIUM 3.8 mmol/L (3.5-5.1); RBC 3.68 M/mm3 (3.60-5.2); RDW 13.2 % (11.6-15.6)
[2024-04-22 08:38] LABS: CALCIUM 8.7 mg/dL (8.5-10.1)
[2024-04-22 08:39] LABS: ALBUMIN 2.8 g/dl (3.4-5.0); BLOOD UREA NITROGEN 9.1 mg/dL (7-18); MAGNESIUM 2.1 mg/dL (1.8-2.4)
[2024-04-22 08:42] LABS: CREATININE 0.6 mg/dL (0.55-1.3); PHOSPHOROUS 3.3 mg/dL (2.5-4.9)
[2024-04-22 08:44] LABS: BILIRUBIN,TOTAL 0.3 mg/dL (0.2-1); TOT PROT 6.2 g/dl (6.4-8.2)
[2024-04-22] MEDS: CEFUROXIME AXETIL 500 MG TABLET PO SCH (09:18)
[2024-04-22] MEDS: ASPIRIN COATED 81 MG TABLET.EC PO SCH (09:18)
[2024-04-22] MEDS: SERTRALINE HCL 25 MG TABLET (FP) PO SCH (09:18)
[2024-04-22] MEDS: CLOPIDOGREL BISULFATE 75 MG TABLET (FP) PO SCH (09:18)
[2024-04-22] MEDS: TOLTERODINE TARTRATE LA 2 MG CAP.SR.24H PO SCH (09:19)
[2024-04-22] MEDS ORDERED: ENOXAPARIN NA (PORCINE) 40 MG/0.4 ML DISP.SYRIN SQ SCH (10:00)
== END 2024-04-22 14:01 | disposition home or self-care (01) ==
LOC: JER 12:35 → JERBED 18:34 → INTOOBSV 18:34 → J4W 21:49
PROVIDERS: ADMIT Internal Medicine; ATTEND Internal Medicine
DX: N39.0 Urinary tract infection, site not specified (principal); W18.30XA Fall on same level, unspecified, initial encounter; Y93.89 Activity, other specified; Y92.002 Bathroom of unspecified non-institutional (private) residence as the place of occurrence of the external cause; I11.9 Hypertensive heart disease without heart failure; F03.90 Unspecified dementia, unspecified severity, without behavioral disturbance, psychotic disturbance, mood disturbance, and anxiety; E78.5 Hyperlipidemia, unspecified; E03.9 Hypothyroidism, unspecified; R56.9 Unspecified convulsions; R55 Syncope and collapse; Z87.891 Personal history of nicotine dependence; Z95.5 Presence of coronary angioplasty implant and graft; Z87.440 Personal history of urinary (tract) infections
CPT/HCPCS: 36415; 70450-TC; 71045-TC-FY; 72125-TC; 80053; 81003; 83735; 83880; 84100; 84484; 85025; 85027; 85610; 85730; 87086; 87186; 93005; 93010; 96365; 99285-25; G0378

== ENCOUNTER 2024-05-15 20:01 | Inpatient (IN) | payer OTHER ==
[2024-05-15] MEDS ORDERED: levETIRAcetam 500 MG/5 ML INJECTION VIAL IVPB ONE (21:42)
[2024-05-15] MEDS: levETIRAcetam 500 MG/5 ML INJECTION VIAL IVPB ONE (22:36)
[2024-05-15 22:42] LABS: BASO % 0.9 % (0-2.0); EOS % 0.7 % (0-4.5); HEMATOCRIT 39.5 % (32.4-45.2); HEMOGLOBIN 13.3 GM/dL (10.7-15.3); LYMPH % 7.2 % (8-40); MCH 30.3 pg (25.7-33.7); MCHC 33.8 g/dl (32.0-36.0); MEAN CELL VOLUME 89.6 fl (80-96); MEAN PLT VOLUME 7.2 fl (7.5-11.1); MONO % 4.9 % (3.8-10.2); NEUT % 86.3 % (42.8-82.8); PLATELET COUNT 330 10^3/uL (134-434); RDW 13.6 % (11.6-15.6); WHITE BLOOD COUNT 9.4 K/mm3 (4.0-10.0)
[2024-05-15 22:57] LABS: POTASSIUM 4.1 mmol/L (3.5-5.1)
[2024-05-15 22:59] LABS: CALCIUM 9.6 mg/dL (8.5-10.1)
[2024-05-15 23:00] LABS: ALBUMIN 3.8 g/dl (3.4-5.0); BLOOD UREA NITROGEN 13.5 mg/dL (7-18)
[2024-05-15 23:02] LABS: CREATININE 0.7 mg/dL (0.55-1.3)
[2024-05-15 23:05] LABS: BILIRUBIN,TOTAL 0.4 mg/dL (0.2-1); TOT PROT 7.9 g/dl (6.4-8.2)
[2024-05-16] MEDS ORDERED: ACETAMINOPHEN 325 MG TABLET (FP) ONE (01:26)
[2024-05-16] MEDS: ACETAMINOPHEN 325 MG TABLET (FP) PO ONE (01:41)
[2024-05-16 01:50] LABS: EPI CELLS 2 /uL (0-25.1); HYALINE CASTS 1 /uL (0-3.1); PH,URINE 6.5 (5.0-8.0); URINE APPEARANCE CLOUDY; URINE BACTERIA >9,000 /uL (0-1359); URINE BILIRUBIN NEGATIVE (NEGATIVE); URINE COLOR YELLOW; URINE GLUCOSE (UA) NEGATIVE (NEGATIVE); URINE KETONE 1+ (NEGATIVE); URINE LEUK ESTERASE 3+ (NEGATIVE); URINE NITRITE NEGATIVE (NEGATIVE); URINE PROTEIN 1+ (NEGATIVE); URINE RBC 69 /uL (0-23.9); URINE UROBILINOGEN 0.2 mg/dL (0.2-1.0); URINE WBC 1290 /uL (0-25.8)
[2024-05-16] MEDS ORDERED: CEPHALEXIN MONOHYDRATE 500 MG CAPSULE (UD) ONE (02:48)
[2024-05-16] MEDS: CEPHALEXIN MONOHYDRATE 500 MG CAPSULE (UD) PO ONE (02:52)
[2024-05-16] MEDS ORDERED: PIPERACILLIN/TAZOB 4.5 GM 4.5 GM/100 ML BAG IVPB ONE (04:46)
[2024-05-16] MEDS: PIPERACILLIN/TAZOB 4.5 GM 4.5 GM in DEXTROSE 5%-WATER 100 ML IVPB ONE (04:56)
[2024-05-16] MEDS ORDERED: ERTAPENEM SODIUM 1 GM VIAL ONE (06:27)
[2024-05-16] MEDS ORDERED: LEVOTHYROXINE NA 75 MCG TABLET (FP) ONE (06:27)
[2024-05-16] MEDS: LEVOTHYROXINE NA 75 MCG TABLET (FP) PO SCH (06:39)
[2024-05-16] MEDS: ERTAPENEM SODIUM 1 GM in SODIUM CHLORIDE 50 ML IVPB SCH (06:39)
[2024-05-16] MEDS: ERTAPENEM SODIUM 1 GM in SODIUM CHLORIDE 50 ML IVPB ONE (07:22)
[2024-05-16] MEDS ORDERED: ENOXAPARIN NA (PORCINE) 40 MG/0.4 ML DISP.SYRIN SQ SCH (10:00)
[2024-05-16] MEDS ORDERED: levETIRAcetam 500 MG TABLET (FP) PO ONE (10:20)
[2024-05-16] MEDS ORDERED: ASPIRIN COATED 81 MG TABLET.EC ONE (10:20)
[2024-05-16] MEDS ORDERED: CLOPIDOGREL BISULFATE 75 MG TABLET (FP) ONE (10:21)
[2024-05-16] MEDS ORDERED: SERTRALINE HCL 50 MG TABLET (FP) ONE (10:22)
[2024-05-16] MEDS: levETIRAcetam 500 MG TABLET (FP) PO SCH (10:29)
[2024-05-16] MEDS: ASPIRIN COATED 81 MG TABLET.EC PO SCH (10:29)
[2024-05-16] MEDS: CLOPIDOGREL BISULFATE 75 MG TABLET (FP) PO SCH (10:30)
[2024-05-16] MEDS: SERTRALINE HCL 25 MG TABLET (FP) PO SCH (10:30)
[2024-05-16 10:53] LABS: HEMATOCRIT 35.5 % (32.4-45.2); HEMOGLOBIN 11.9 GM/dL (10.7-15.3); MCH 30.1 pg (25.7-33.7); MCHC 33.6 g/dl (32.0-36.0); MEAN CELL VOLUME 89.8 fl (80-96); MEAN PLT VOLUME 6.8 fl (7.5-11.1); PLATELET COUNT 293 10^3/uL (134-434); RBC 3.95 M/mm3 (3.60-5.2); RDW 13.1 % (11.6-15.6); WHITE BLOOD COUNT 5.4 K/mm3 (4.0-10.0)
[2024-05-16] MEDS: TOLTERODINE TARTRATE LA 2 MG CAP.SR.24H PO SCH (11:00)
[2024-05-16 11:11] LABS: POTASSIUM 3.4 mmol/L (3.5-5.1)
[2024-05-16 11:14] LABS: ALBUMIN 3.1 g/dl (3.4-5.0); CALCIUM 9.2 mg/dL (8.5-10.1)
[2024-05-16 11:15] LABS: BLOOD UREA NITROGEN 11.9 mg/dL (7-18); MAGNESIUM 2.1 mg/dL (1.8-2.4)
[2024-05-16 11:17] LABS: CREATININE 0.8 mg/dL (0.55-1.3); PHOSPHOROUS 3.1 mg/dL (2.5-4.9)
[2024-05-16 11:19] LABS: BILIRUBIN,TOTAL 0.4 mg/dL (0.2-1); TOT PROT 6.5 g/dl (6.4-8.2)
[2024-05-16] MEDS: ROSUVASTATIN CA 20 MG TABLET PO SCH (21:34)
[2024-05-17 09:07] LABS: BASO % 1.2 % (0-2.0); EOS % 7.4 % (0-4.5); HEMATOCRIT 34.2 % (32.4-45.2); HEMOGLOBIN 11.4 GM/dL (10.7-15.3); LYMPH % 19.5 % (8-40); MCH 29.9 pg (25.7-33.7); MCHC 33.3 g/dl (32.0-36.0); MEAN CELL VOLUME 89.7 fl (80-96); MEAN PLT VOLUME 7.1 fl (7.5-11.1); MONO % 9.1 % (3.8-10.2); NEUT % 62.8 % (42.8-82.8); PLATELET COUNT 287 10^3/uL (134-434); RBC 3.81 M/mm3 (3.60-5.2); RDW 13.7 % (11.6-15.6)
[2024-05-17 09:13] LABS: POTASSIUM 3.9 mmol/L (3.5-5.1)
[2024-05-17 09:15] LABS: CALCIUM 8.8 mg/dL (8.5-10.1)
[2024-05-17 09:16] LABS: ALBUMIN 2.9 g/dl (3.4-5.0); BLOOD UREA NITROGEN 8.8 mg/dL (7-18); MAGNESIUM 2.1 mg/dL (1.8-2.4)
[2024-05-17 09:20] LABS: CREATININE 0.6 mg/dL (0.55-1.3)
[2024-05-17 09:21] LABS: BILIRUBIN,TOTAL 0.3 mg/dL (0.2-1)
[2024-05-18 09:54] LABS: BASO % 1.3 % (0-2.0); EOS % 6.9 % (0-4.5); HEMATOCRIT 34.9 % (32.4-45.2); HEMOGLOBIN 11.9 GM/dL (10.7-15.3); MCH 30.3 pg (25.7-33.7); MCHC 34.2 g/dl (32.0-36.0); MEAN CELL VOLUME 88.6 fl (80-96); MEAN PLT VOLUME 6.8 fl (7.5-11.1); NEUT % 60.8 % (42.8-82.8); PLATELET COUNT 293 10^3/uL (134-434); RBC 3.94 M/mm3 (3.60-5.2); RDW 13.6 % (11.6-15.6); WHITE BLOOD COUNT 5.1 K/mm3 (4.0-10.0)
[2024-05-18 10:12] LABS: POTASSIUM 4.2 mmol/L (3.5-5.1)
[2024-05-18 10:28] LABS: CREATININE 0.7 mg/dL (0.55-1.3)
[2024-05-18 10:45] LABS: CALCIUM 9.1 mg/dL (8.5-10.1)
[2024-05-18 13:00] VITALS: BMI 24.6
[2024-05-18] MEDS: MEROPENEM-0.9% SODIUM CHLORIDE 1 GM/50 ML BAG IVPB SCH (17:06)
[2024-05-19 10:48] LABS: BASO % 1.2 % (0-2.0); EOS % 4.6 % (0-4.5); HEMATOCRIT 36.9 % (32.4-45.2); HEMOGLOBIN 12.3 GM/dL (10.7-15.3); LYMPH % 13.7 % (8-40); MCHC 33.3 g/dl (32.0-36.0); MEAN CELL VOLUME 89.9 fl (80-96); MONO % 6.4 % (3.8-10.2); NEUT % 74.1 % (42.8-82.8); PLATELET COUNT 301 10^3/uL (134-434); RBC 4.11 M/mm3 (3.60-5.2); RDW 13.4 % (11.6-15.6); WHITE BLOOD COUNT 7.2 K/mm3 (4.0-10.0)
[2024-05-19 11:17] LABS: BLOOD UREA NITROGEN 9.5 mg/dL (7-18); CALCIUM 8.7 mg/dL (8.5-10.1)
[2024-05-19 11:21] LABS: CREATININE 0.7 mg/dL (0.55-1.3)
[2024-05-19] MEDS: ACETAMINOPHEN 325 MG TABLET (FP) PO PRN (14:13)
[2024-05-19] MEDS: DONEPEZIL HCL PO SCH (19:58)
[2024-05-19] MEDS: DONEPEZIL HCL 5 MG TABLET (FP) PO SCH (21:54)
[2024-05-20 08:57] LABS: BASO % 1.1 % (0-2.0); EOS % 6.5 % (0-4.5); HEMATOCRIT 38.1 % (32.4-45.2); HEMOGLOBIN 12.7 GM/dL (10.7-15.3); LYMPH % 18.2 % (8-40); MCH 29.6 pg (25.7-33.7); MCHC 33.4 g/dl (32.0-36.0); MEAN CELL VOLUME 88.6 fl (80-96); MEAN PLT VOLUME 7.2 fl (7.5-11.1); MONO % 8.3 % (3.8-10.2); NEUT % 65.9 % (42.8-82.8); PLATELET COUNT 295 10^3/uL (134-434); RDW 13.8 % (11.6-15.6); WHITE BLOOD COUNT 5.9 K/mm3 (4.0-10.0)
[2024-05-20 09:19] LABS: POTASSIUM 4.1 mmol/L (3.5-5.1)
[2024-05-20 09:23] LABS: BLOOD UREA NITROGEN 11.3 mg/dL (7-18); CALCIUM 8.8 mg/dL (8.5-10.1)
[2024-05-20 09:24] LABS: ALBUMIN 3.2 g/dl (3.4-5.0); MAGNESIUM 2.4 mg/dL (1.8-2.4)
[2024-05-20 09:27] LABS: CREATININE 0.6 mg/dL (0.55-1.3)
[2024-05-20 09:28] LABS: BILIRUBIN,TOTAL 0.4 mg/dL (0.2-1); TOT PROT 6.6 g/dl (6.4-8.2)
[2024-05-21 09:13] LABS: BASO % 1.2 % (0-2.0); EOS % 6.2 % (0-4.5); HEMATOCRIT 39.9 % (32.4-45.2); HEMOGLOBIN 13.4 GM/dL (10.7-15.3); LYMPH % 20.8 % (8-40); MCH 29.9 pg (25.7-33.7); MCHC 33.6 g/dl (32.0-36.0); MEAN CELL VOLUME 88.9 fl (80-96); MEAN PLT VOLUME 7.1 fl (7.5-11.1); MONO % 6.9 % (3.8-10.2); NEUT % 64.9 % (42.8-82.8); PLATELET COUNT 321 10^3/uL (134-434); RBC 4.48 M/mm3 (3.60-5.2); RDW 13.3 % (11.6-15.6); WHITE BLOOD COUNT 6.1 K/mm3 (4.0-10.0)
[2024-05-21 09:21] LABS: POTASSIUM 4.1 mmol/L (3.5-5.1)
[2024-05-21 09:41] LABS: BILIRUBIN,TOTAL 0.3 mg/dL (0.2-1); CREATININE 0.7 mg/dL (0.55-1.3)
[2024-05-21 09:42] LABS: TOT PROT 7.5 g/dl (6.4-8.2)
[2024-05-21 09:48] LABS: ALBUMIN 3.5 g/dl (3.4-5.0); BLOOD UREA NITROGEN 14.1 mg/dL (7-18)
[2024-05-21 10:16] LABS: CALCIUM 9.5 mg/dL (8.5-10.1); MAGNESIUM 2.4 mg/dL (1.8-2.4)
[2024-05-22 09:45] LABS: POTASSIUM 4.2 mmol/L (3.5-5.1)
[2024-05-22 09:53] LABS: ALBUMIN 2.9 g/dl (3.4-5.0); CALCIUM 8.8 mg/dL (8.5-10.1); MAGNESIUM 2.4 mg/dL (1.8-2.4)
[2024-05-22 09:57] LABS: CREATININE 0.6 mg/dL (0.55-1.3)
[2024-05-22 09:58] LABS: BILIRUBIN,TOTAL 0.4 mg/dL (0.2-1); TOT PROT 6.3 g/dl (6.4-8.2)
[2024-05-22 09:59] LABS: HEMATOCRIT 35.6 % (32.4-45.2); HEMOGLOBIN 11.7 GM/dL (10.7-15.3); RBC 3.94 M/mm3 (3.60-5.2); WHITE BLOOD COUNT 5.6 K/mm3 (4.0-10.0)
[2024-05-22 10:00] LABS: BASO % 1.2 % (0-2.0); EOS % 5.8 % (0-4.5); LYMPH % 18.1 % (8-40); MCH 29.8 pg (25.7-33.7); MCHC 32.9 g/dl (32.0-36.0); MEAN CELL VOLUME 90.4 fl (80-96); MEAN PLT VOLUME 7.3 fl (7.5-11.1); MONO % 9.4 % (3.8-10.2); NEUT % 65.5 % (42.8-82.8); PLATELET COUNT 288 10^3/uL (134-434); RDW 12.9 % (11.6-15.6)
[2024-05-23 09:54] LABS: BASO % 1.7 % (0-2.0); EOS % 6.1 % (0-4.5); LYMPH % 21.2 % (8-40); MCH 29.9 pg (25.7-33.7); MCHC 33.5 g/dl (32.0-36.0); MEAN CELL VOLUME 89.4 fl (80-96); MEAN PLT VOLUME 7.3 fl (7.5-11.1); MONO % 8.7 % (3.8-10.2); NEUT % 62.3 % (42.8-82.8); PLATELET COUNT 308 10^3/uL (134-434); RBC 4.02 M/mm3 (3.60-5.2); RDW 13.3 % (11.6-15.6); WHITE BLOOD COUNT 5.1 K/mm3 (4.0-10.0)
[2024-05-23 10:12] LABS: POTASSIUM 4.2 mmol/L (3.5-5.1)
[2024-05-23 10:50] LABS: BLOOD UREA NITROGEN 13.4 mg/dL (7-18); CALCIUM 8.9 mg/dL (8.5-10.1); MAGNESIUM 2.5 mg/dL (1.8-2.4)
[2024-05-23 10:53] LABS: BILIRUBIN,TOTAL 0.3 mg/dL (0.2-1); CREATININE 0.6 mg/dL (0.55-1.3)
[2024-05-23 10:54] LABS: TOT PROT 6.6 g/dl (6.4-8.2)
[2024-05-23] MEDS ORDERED: MEROPENEM 1 GM in DEXTROSE 5%-WATER 100 ML IVPB SCH (16:00)
[2024-05-23] MEDS: MEROPENEM-0.9% SODIUM CHLORIDE 1 GM/50 ML BAG IVPB ONE (17:04)
[2024-05-24 00:25] VITALS: RESP 19
[2024-05-24 08:01] VITALS: BP 133/64; PULSE 68; TEMP 97.7
== END 2024-05-24 10:45 | disposition home health service (06) | DRG 690 ==
LOC: JER 20:01 → JERBED 05-16 04:50 → J7W 05-16 13:39 → OBSVTOIN 05-19 10:22
PROVIDERS: ADMIT Internal Medicine; ATTEND Registered Nurse
DX: N39.0 Urinary tract infection, site not specified (principal); B96.1 Klebsiella pneumoniae [K. pneumoniae] as the cause of diseases classified elsewhere; I25.10 Atherosclerotic heart disease of native coronary artery without angina pectoris; E78.5 Hyperlipidemia, unspecified; I10 Essential (primary) hypertension; G40.909 Epilepsy, unspecified, not intractable, without status epilepticus; F03.90 Unspecified dementia, unspecified severity, without behavioral disturbance, psychotic disturbance, mood disturbance, and anxiety; E03.9 Hypothyroidism, unspecified; R29.6 Repeated falls; W08.XXXA Fall from other furniture, initial encounter; Y92.099 Unspecified place in other non-institutional residence as the place of occurrence of the external cause; Y99.9 Unspecified external cause status; Z95.5 Presence of coronary angioplasty implant and graft
CPT/HCPCS: 0241U-QW; 36415; 70450-TC; 71045-TC-FY; 80048; 80053; 80177; 81003; 82550; 82553; 82962; 83605; 83735; 84100; 84484; 85025; 85027; 87086; 87186; 87635; 93005; 93010; 97116-GP; 99285-25; G0378

== ENCOUNTER 2024-05-27 10:57 | Observation (INO) | payer OTHER ==
[2024-05-27 11:47] VITALS: BMI 28.5
[2024-05-27 13:10] LABS: URINE APPEARANCE CLEAR; URINE BILIRUBIN NEGATIVE (NEGATIVE); URINE COLOR YELLOW; URINE GLUCOSE (UA) NEGATIVE (NEGATIVE); URINE KETONE 2+ (NEGATIVE); URINE LEUK ESTERASE NEGATIVE (NEGATIVE); URINE NITRITE NEGATIVE (NEGATIVE); URINE PROTEIN TRACE (NEGATIVE); URINE UROBILINOGEN 0.2 mg/dL (0.2-1.0)
[2024-05-27 14:50] LABS: BASO % 0.5 % (0-2.0); EOS % 0.2 % (0-4.5); HEMATOCRIT 38.5 % (32.4-45.2); HEMOGLOBIN 12.8 GM/dL (10.7-15.3); LYMPH % 7.6 % (8-40); MCH 29.6 pg (25.7-33.7); MCHC 33.2 g/dl (32.0-36.0); MEAN CELL VOLUME 89.2 fl (80-96); MEAN PLT VOLUME 7.1 fl (7.5-11.1); MONO % 5.1 % (3.8-10.2); NEUT % 86.6 % (42.8-82.8); PLATELET COUNT 311 10^3/uL (134-434); RBC 4.31 M/mm3 (3.60-5.2); RDW 13.1 % (11.6-15.6); WHITE BLOOD COUNT 8.9 K/mm3 (4.0-10.0)
[2024-05-27 15:07] LABS: POTASSIUM 4.5 mmol/L (3.5-5.1)
[2024-05-27 15:10] LABS: CALCIUM 9.5 mg/dL (8.5-10.1)
[2024-05-27 15:11] LABS: ALBUMIN 3.6 g/dl (3.4-5.0); BLOOD UREA NITROGEN 14.6 mg/dL (7-18)
[2024-05-27] MEDS: levETIRAcetam 500 MG/5 ML INJECTION VIAL IVPB ONE ×2 (15:12→15:31)
[2024-05-27] MEDS ORDERED: levETIRAcetam 500 MG/5 ML INJECTION VIAL IVPB ONE (15:13)
[2024-05-27 15:14] LABS: CREATININE 0.5 mg/dL (0.55-1.3)
[2024-05-27 15:16] LABS: TOT PROT 7.6 g/dl (6.4-8.2)
[2024-05-27 15:18] LABS: BILIRUBIN,TOTAL 0.7 mg/dL (0.2-1)
[2024-05-27] MEDS ORDERED: DONEPEZIL HCL 5 MG TABLET (FP) ONE (22:11)
[2024-05-27] MEDS ORDERED: levETIRAcetam 500 MG TABLET (FP) PO ONE (22:11)
[2024-05-27] MEDS ORDERED: ROSUVASTATIN CA 20 MG TABLET ONE (22:12)
[2024-05-27] MEDS: levETIRAcetam 500 MG TABLET (FP) PO SCH (22:23)
[2024-05-27] MEDS: ROSUVASTATIN CA 20 MG TABLET PO SCH (22:23)
[2024-05-27] MEDS: DONEPEZIL HCL 5 MG TABLET (FP) PO SCH (22:23)
[2024-05-28 04:32] VITALS: BP 126/67; PULSE 69; RESP 18; TEMP 98.8
[2024-05-28] MEDS: LEVOTHYROXINE NA 75 MCG TABLET (FP) PO SCH (06:16)
[2024-05-28 08:09] LABS: BASO % 1.3 % (0-2.0); EOS % 2.3 % (0-4.5); HEMATOCRIT 37.6 % (32.4-45.2); HEMOGLOBIN 12.2 GM/dL (10.7-15.3); LYMPH % 15.3 % (8-40); MCH 29.8 pg (25.7-33.7); MCHC 32.5 g/dl (32.0-36.0); MEAN CELL VOLUME 91.5 fl (80-96); MEAN PLT VOLUME 6.9 fl (7.5-11.1); MONO % 7.6 % (3.8-10.2); NEUT % 73.5 % (42.8-82.8); PLATELET COUNT 325 10^3/uL (134-434); RBC 4.11 M/mm3 (3.60-5.2); RDW 13.2 % (11.6-15.6); WHITE BLOOD COUNT 8.6 K/mm3 (4.0-10.0)
[2024-05-28 08:33] LABS: POTASSIUM 3.8 mmol/L (3.5-5.1)
[2024-05-28 08:47] LABS: ALBUMIN 3.3 g/dl (3.4-5.0); BLOOD UREA NITROGEN 17.1 mg/dL (7-18); CALCIUM 9.3 mg/dL (8.5-10.1); MAGNESIUM 2.2 mg/dL (1.8-2.4)
[2024-05-28 08:50] LABS: BILIRUBIN,TOTAL 0.5 mg/dL (0.2-1); CREATININE 0.5 mg/dL (0.55-1.3); PHOSPHOROUS 3.1 mg/dL (2.5-4.9)
[2024-05-28 08:52] LABS: TOT PROT 6.8 g/dl (6.4-8.2)
[2024-05-28] MEDS ORDERED: TOLTERODINE TARTRATE LA 2 MG CAP.SR.24H PO SCH (10:00)
[2024-05-28] MEDS: CLOPIDOGREL BISULFATE 75 MG TABLET (FP) PO SCH (10:33)
[2024-05-28] MEDS: ASPIRIN COATED 81 MG TABLET.EC PO SCH (10:33)
[2024-05-28] MEDS: SERTRALINE HCL 25 MG TABLET (FP) PO SCH (10:33)
== END 2024-05-28 14:51 | disposition home or self-care (01) ==
LOC: JER 10:57 → JERBED 16:40 → J6S 05-28 04:21
PROVIDERS: ADMIT Internal Medicine; ATTEND Internal Medicine
PROC: 3E033GC Introduction of Other Therapeutic Substance into Peripheral Vein, Percutaneous Approach (ICD-10-PCS; principal; 2024-05-27)
DX: R56.9 Unspecified convulsions (principal); I11.9 Hypertensive heart disease without heart failure; E78.5 Hyperlipidemia, unspecified; E03.9 Hypothyroidism, unspecified; W18.39XA Other fall on same level, initial encounter; Y93.89 Activity, other specified; F03.90 Unspecified dementia, unspecified severity, without behavioral disturbance, psychotic disturbance, mood disturbance, and anxiety; Y92.003 Bedroom of unspecified non-institutional (private) residence as the place of occurrence of the external cause; M48.00 Spinal stenosis, site unspecified; R42 Dizziness and giddiness; R29.6 Repeated falls; Z90.49 Acquired absence of other specified parts of digestive tract; Z87.891 Personal history of nicotine dependence; Z87.440 Personal history of urinary (tract) infections
CPT/HCPCS: 0241U-QW; 36415; 70450-TC; 71045-TC-FY; 80053; 81003; 83735; 84100; 84484; 85025; 87086; 93005; 93010; 96374; 97116-GP; 97162-GP; 99285-25; G0378

== ENCOUNTER 2024-06-09 13:30 | Observation (INO) | payer OTHER ==
[2024-06-09 14:01] VITALS: BMI 27.0
[2024-06-09] MEDS ORDERED: levETIRAcetam 500 MG TABLET (FP) PO ONE (16:37)
[2024-06-09] MEDS: levETIRAcetam 500 MG TABLET (FP) PO ONE (16:59)
[2024-06-09 17:15] LABS: EPI CELLS 1 /uL (0-25.1); HYALINE CASTS 2 /uL (0-3.1); PH,URINE 7.5 (5.0-8.0); URINE APPEARANCE TURBID; URINE BACTERIA 4814 /uL (0-1359); URINE BILIRUBIN NEGATIVE (NEGATIVE); URINE COLOR YELLOW; URINE GLUCOSE (UA) NEGATIVE (NEGATIVE); URINE KETONE NEGATIVE (NEGATIVE); URINE LEUK ESTERASE 3+ (NEGATIVE); URINE NITRITE POSITIVE (NEGATIVE); URINE PROTEIN 1+ (NEGATIVE); URINE UROBILINOGEN 0.2 mg/dL (0.2-1.0); URINE WBC 6731 /uL (0-25.8)
[2024-06-09] MEDS ORDERED: MEROPENEM-0.9% SODIUM CHLORIDE 1 GM/50 ML BAG IVPB ONE (18:02)
[2024-06-09] MEDS: MEROPENEM 1 GM in DEXTROSE 5%-WATER 100 ML IVPB ONE (18:03)
[2024-06-09 18:05] LABS: BASO % 0.8 % (0-2.0); EOS % 4.9 % (0-4.5); HEMATOCRIT 36.9 % (32.4-45.2); HEMOGLOBIN 12.3 GM/dL (10.7-15.3); LYMPH % 19.2 % (8-40); MCH 29.5 pg (25.7-33.7); MCHC 33.3 g/dl (32.0-36.0); MEAN CELL VOLUME 88.7 fl (80-96); MEAN PLT VOLUME 6.7 fl (7.5-11.1); MONO % 7.9 % (3.8-10.2); NEUT % 67.2 % (42.8-82.8); PLATELET COUNT 304 10^3/uL (134-434); RBC 4.16 M/mm3 (3.60-5.2); RDW 13.1 % (11.6-15.6); WHITE BLOOD COUNT 6.7 K/mm3 (4.0-10.0)
[2024-06-09 18:37] LABS: POTASSIUM 3.6 mmol/L (3.5-5.1)
[2024-06-09 18:38] LABS: ALBUMIN 3.4 g/dl (3.4-5.0); CALCIUM 9.2 mg/dL (8.5-10.1)
[2024-06-09 18:42] LABS: CREATININE 0.6 mg/dL (0.55-1.3)
[2024-06-09 18:43] LABS: BILIRUBIN,TOTAL 0.3 mg/dL (0.2-1)
[2024-06-09 18:59] LABS: URINE RBC 73.8 /uL (0-23.9)
[2024-06-09] MEDS ORDERED: DONEPEZIL HCL 5 MG TABLET (FP) ONE (22:59)
[2024-06-09] MEDS ORDERED: VANCOMYCIN 1 GRAM (PRE-DOCKED) 1,000 MG/250 ML BAG IVPB ONE ×2 (23:00→23:23)
[2024-06-09] MEDS: DONEPEZIL HCL 5 MG TABLET (FP) PO SCH (23:42)
[2024-06-09] MEDS: VANCOMYCIN 1 GRAM (PRE-DOCKED) 1,000 MG/250 ML BAG IVPB SCH (23:42)
[2024-06-10] MEDS ORDERED: MEROPENEM 1 GM in DEXTROSE 5%-WATER 100 ML IVPB SCH (02:00)
[2024-06-10] MEDS ORDERED: MEROPENEM-0.9% SODIUM CHLORIDE 1 GM/50 ML BAG IVPB ONE (02:22)
[2024-06-10] MEDS: MEROPENEM-0.9% SODIUM CHLORIDE 1 GM/50 ML BAG IVPB SCH (02:30)
[2024-06-10] MEDS: LEVOTHYROXINE NA 75 MCG TABLET (FP) PO SCH (06:10)
[2024-06-10 08:34] LABS: HEMATOCRIT 36.2 % (32.4-45.2); HEMOGLOBIN 12.1 GM/dL (10.7-15.3); MCH 29.6 pg (25.7-33.7); MCHC 33.5 g/dl (32.0-36.0); MEAN CELL VOLUME 88.6 fl (80-96); MEAN PLT VOLUME 6.7 fl (7.5-11.1); PLATELET COUNT 296 10^3/uL (134-434); RBC 4.09 M/mm3 (3.60-5.2); RDW 13.1 % (11.6-15.6); WHITE BLOOD COUNT 6.2 K/mm3 (4.0-10.0)
[2024-06-10 08:47] LABS: POTASSIUM 3.6 mmol/L (3.5-5.1)
[2024-06-10 08:54] LABS: ALBUMIN 3.1 g/dl (3.4-5.0)
[2024-06-10 08:55] LABS: BLOOD UREA NITROGEN 6.8 mg/dL (7-18); CALCIUM 8.9 mg/dL (8.5-10.1); MAGNESIUM 2.2 mg/dL (1.8-2.4)
[2024-06-10 08:57] LABS: CREATININE 0.6 mg/dL (0.55-1.3)
[2024-06-10 08:58] LABS: PHOSPHOROUS 3.5 mg/dL (2.5-4.9)
[2024-06-10 08:59] LABS: BILIRUBIN,TOTAL 0.3 mg/dL (0.2-1); TOT PROT 6.4 g/dl (6.4-8.2)
[2024-06-10] MEDS: SERTRALINE HCL 25 MG TABLET (FP) PO SCH (09:34)
[2024-06-10] MEDS: ASPIRIN COATED 81 MG TABLET.EC PO SCH (09:34)
[2024-06-10] MEDS: levETIRAcetam 500 MG TABLET (FP) PO SCH (09:34)
[2024-06-10] MEDS: TOLTERODINE TARTRATE LA 2 MG CAP.SR.24H PO SCH (09:34)
[2024-06-10] MEDS: CLOPIDOGREL BISULFATE 75 MG TABLET (FP) PO SCH (09:34)
[2024-06-10] MEDS: ENOXAPARIN NA (PORCINE) 40 MG/0.4 ML DISP.SYRIN SQ SCH (09:35)
[2024-06-10] MEDS: VANCOMYCIN 1,000 MG in DEXTROSE 5%-WATER - 250 ML IVPB SCH (14:12)
[2024-06-10] MEDS: ROSUVASTATIN CA 20 MG TABLET PO SCH (22:27)
[2024-06-11] MEDS: MEROPENEM-0.9% SODIUM CHLORIDE 1 GM/50 ML BAG IVPB SCH (02:59)
[2024-06-11 11:05] LABS: BASO % 0.9 % (0-2.0); EOS % 5.5 % (0-4.5); HEMATOCRIT 36.5 % (32.4-45.2); HEMOGLOBIN 11.9 GM/dL (10.7-15.3); LYMPH % 15.9 % (8-40); MCH 29.3 pg (25.7-33.7); MCHC 32.6 g/dl (32.0-36.0); MEAN CELL VOLUME 89.8 fl (80-96); MEAN PLT VOLUME 6.8 fl (7.5-11.1); MONO % 8.6 % (3.8-10.2); NEUT % 69.1 % (42.8-82.8); PLATELET COUNT 297 10^3/uL (134-434); RBC 4.06 M/mm3 (3.60-5.2); WHITE BLOOD COUNT 6.9 K/mm3 (4.0-10.0)
[2024-06-11 11:18] LABS: POTASSIUM 4.1 mmol/L (3.5-5.1)
[2024-06-11 11:25] LABS: ALBUMIN 2.9 g/dl (3.4-5.0); BLOOD UREA NITROGEN 9.2 mg/dL (7-18); CALCIUM 9.2 mg/dL (8.5-10.1)
[2024-06-11 11:29] LABS: CREATININE 0.7 mg/dL (0.55-1.3)
[2024-06-11 11:30] LABS: BILIRUBIN,TOTAL 0.3 mg/dL (0.2-1); TOT PROT 6.4 g/dl (6.4-8.2)
[2024-06-12 09:53] LABS: CALCIUM 9.1 mg/dL (8.5-10.1); POTASSIUM 3.9 mmol/L (3.5-5.1)
[2024-06-12 09:54] LABS: ALBUMIN 2.8 g/dl (3.4-5.0); BLOOD UREA NITROGEN 9.6 mg/dL (7-18)
[2024-06-12 09:57] LABS: CREATININE 0.6 mg/dL (0.55-1.3)
[2024-06-12 09:59] LABS: BILIRUBIN,TOTAL 0.3 mg/dL (0.2-1); TOT PROT 6.2 g/dl (6.4-8.2)
[2024-06-12 11:11] LABS: BASO % 0.6 % (0-2.0); EOS % 8.6 % (0-4.5); HEMOGLOBIN 11.5 GM/dL (10.7-15.3); LYMPH % 26.9 % (8-40); MEAN CELL VOLUME 88.3 fl (80-96); MEAN PLT VOLUME 6.9 fl (7.5-11.1); MONO % 9.9 % (3.8-10.2); PLATELET COUNT 270 10^3/uL (134-434); RBC 3.84 M/mm3 (3.60-5.2); WHITE BLOOD COUNT 4.8 K/mm3 (4.0-10.0)
[2024-06-12] MEDS ORDERED: PIPERACILLIN/TAZOB 3.375 GM 3.375 GM in DEXTROSE 5%-WATER - 50 ML IVPB SCH (11:45)
[2024-06-12] MEDS: PIPERACILLIN/TAZOB 3.375 GM 50 ML IVPB SCH (13:47)
[2024-06-13 10:05] LABS: BASO % 0.7 % (0-2.0); EOS % 8.6 % (0-4.5); HEMATOCRIT 34.8 % (32.4-45.2); HEMOGLOBIN 11.4 GM/dL (10.7-15.3); LYMPH % 23.5 % (8-40); MCH 29.3 pg (25.7-33.7); MCHC 32.8 g/dl (32.0-36.0); MEAN CELL VOLUME 89.3 fl (80-96); MEAN PLT VOLUME 7.2 fl (7.5-11.1); MONO % 9.7 % (3.8-10.2); NEUT % 57.5 % (42.8-82.8); PLATELET COUNT 276 10^3/uL (134-434); RBC 3.89 M/mm3 (3.60-5.2); RDW 12.9 % (11.6-15.6); WHITE BLOOD COUNT 5.7 K/mm3 (4.0-10.0)
[2024-06-13 10:10] LABS: POTASSIUM 4.1 mmol/L (3.5-5.1)
[2024-06-13 10:12] LABS: ALBUMIN 2.8 g/dl (3.4-5.0); BLOOD UREA NITROGEN 12.9 mg/dL (7-18)
[2024-06-13 10:16] LABS: CREATININE 0.7 mg/dL (0.55-1.3)
[2024-06-13 10:17] LABS: BILIRUBIN,TOTAL 0.2 mg/dL (0.2-1); TOT PROT 6.2 g/dl (6.4-8.2)
[2024-06-13 11:07] VITALS: BP 102/60; PULSE 72; RESP 18; TEMP 98.4
== END 2024-06-13 13:48 | disposition home or self-care (01) ==
LOC: JER 13:30 → UNDOADMOB 18:00 → OBSVTOIN 18:00 → JERBED 18:00 → INTOOBSV 18:00 → J5S 06-10 04:13 → JERBED 06-10 04:13 → J5S 06-10 09:30
PROVIDERS: ADMIT Internal Medicine
PROC: 3E023GC Introduction of Other Therapeutic Substance into Muscle, Percutaneous Approach (ICD-10-PCS; principal; 2024-06-10)
PROC: 3E03329 Introduction of Other Anti-infective into Peripheral Vein, Percutaneous Approach (ICD-10-PCS; 2024-06-10)
PROC: 3E033GC Introduction of Other Therapeutic Substance into Peripheral Vein, Percutaneous Approach (ICD-10-PCS; 2024-06-10)
DX: N39.0 Urinary tract infection, site not specified (principal); W18.39XA Other fall on same level, initial encounter; Y93.89 Activity, other specified; Z95.5 Presence of coronary angioplasty implant and graft; Y92.098 Other place in other non-institutional residence as the place of occurrence of the external cause; R41.0 Disorientation, unspecified; E78.5 Hyperlipidemia, unspecified; F03.90 Unspecified dementia, unspecified severity, without behavioral disturbance, psychotic disturbance, mood disturbance, and anxiety; I11.9 Hypertensive heart disease without heart failure; N32.81 Overactive bladder; E03.9 Hypothyroidism, unspecified; R56.9 Unspecified convulsions; Z87.891 Personal history of nicotine dependence
CPT/HCPCS: 36415; 70450-TC; 72125-TC; 76775-TC; 76856-TC; 80053; 80177; 81003; 83735; 84100; 85025; 85027; 87086; 87186; 93005; 93010; 96365; 96366; 96367; 96368; 96372; 97116-GP; 97161-GP; 99285-25; G0378

== ENCOUNTER 2024-06-15 11:07 | Emergency (ER) | payer OTHER ==
[2024-06-15 12:23] LABS: BASO % 0.8 % (0-2.0); EOS % 3.1 % (0-4.5); HEMATOCRIT 35.6 % (32.4-45.2); HEMOGLOBIN 11.6 GM/dL (10.7-15.3); MCH 29.5 pg (25.7-33.7); MCHC 32.7 g/dl (32.0-36.0); MEAN CELL VOLUME 90.2 fl (80-96); MEAN PLT VOLUME 6.6 fl (7.5-11.1); MONO % 6.4 % (3.8-10.2); NEUT % 75.7 % (42.8-82.8); PLATELET COUNT 277 10^3/uL (134-434); RBC 3.94 M/mm3 (3.60-5.2); WHITE BLOOD COUNT 6.6 K/mm3 (4.0-10.0)
[2024-06-15 12:28] LABS: INR 1.02 (0.83-1.09); PROTHROMBIN TIME (PATIENT) 11.5 SEC (9.7-13.0)
[2024-06-15 12:31] LABS: ACTIVATED PTT 29.3 SECONDS (25.2-36.5)
[2024-06-15 12:46] LABS: POTASSIUM 4.2 mmol/L (3.5-5.1)
[2024-06-15 12:47] LABS: MAGNESIUM 2.3 mg/dL (1.8-2.4)
[2024-06-15 12:48] LABS: ALBUMIN 3.2 g/dl (3.4-5.0); BLOOD UREA NITROGEN 12.8 mg/dL (7-18); CALCIUM 9.4 mg/dL (8.5-10.1)
[2024-06-15 12:50] LABS: PHOSPHOROUS 2.9 mg/dL (2.5-4.9)
[2024-06-15 12:51] LABS: CREATININE 0.6 mg/dL (0.55-1.3)
[2024-06-15 12:53] LABS: BILIRUBIN,TOTAL 0.3 mg/dL (0.2-1); TOT PROT 6.9 g/dl (6.4-8.2)
[2024-06-15] MEDS ORDERED: levETIRAcetam 500 MG TABLET (FP) PO ONE (13:08)
[2024-06-15] MEDS: levETIRAcetam 500 MG TABLET (FP) PO ONE (13:11)
[2024-06-15 13:51] LABS: HIV INTERPRETATION NEGATIVE (NEGATIVE)
[2024-06-15 16:03] VITALS: BP 110/65; PULSE 76; RESP 19; TEMP 97.9; BMI 38.2
== END 2024-06-15 13:57 | disposition home or self-care (01) ==
LOC: JER 11:07
DX: R42 Dizziness and giddiness (principal); R05.9 Cough, unspecified
CPT/HCPCS: 36415; 71045-TC-FY; 80053; 82962; 83735; 84100; 84484; 85025; 85610; 85730; 86803; 87389; 93005; 93010; 99285-25

== ENCOUNTER 2024-08-03 12:03 | Observation (INO) | payer OTHER ==
[2024-08-03 12:34] VITALS: BMI 24.6
[2024-08-03 15:33] LABS: BASO % 0.9 % (0-2.0); EOS % 2.7 % (0-4.5); HEMATOCRIT 35.2 % (32.4-45.2); HEMOGLOBIN 11.6 GM/dL (10.7-15.3); LYMPH % 15.9 % (8-40); MEAN CELL VOLUME 87.9 fl (80-96); MEAN PLT VOLUME 6.6 fl (7.5-11.1); MONO % 7.4 % (3.8-10.2); NEUT % 73.1 % (42.8-82.8); PLATELET COUNT 248 10^3/uL (134-434); RDW 13.3 % (11.6-15.6); WHITE BLOOD COUNT 5.3 K/mm3 (4.0-10.0)
[2024-08-03] MEDS: ACETAMINOPHEN 1000 MG/100 ML BAG IVPB ONE (15:36)
[2024-08-03] MEDS ORDERED: ACETAMINOPHEN INJECTION 100 ML ONE (15:37)
[2024-08-03 15:39] LABS: INR 0.98 (0.83-1.09); PROTHROMBIN TIME (PATIENT) 11.3 SEC (9.7-13.0)
[2024-08-03 15:42] LABS: ACTIVATED PTT 29.6 SECONDS (25.2-36.5)
[2024-08-03 15:50] LABS: POTASSIUM 3.8 mmol/L (3.5-5.1)
[2024-08-03 15:52] LABS: CALCIUM 9.1 mg/dL (8.5-10.1)
[2024-08-03 15:53] LABS: ALBUMIN 3.4 g/dl (3.4-5.0); BLOOD UREA NITROGEN 9.1 mg/dL (7-18); MAGNESIUM 2.2 mg/dL (1.8-2.4)
[2024-08-03 15:55] LABS: CREATININE 0.6 mg/dL (0.55-1.3)
[2024-08-03 15:57] LABS: BILIRUBIN,TOTAL 0.3 mg/dL (0.2-1); TOT PROT 6.6 g/dl (6.4-8.2)
[2024-08-03 16:41] LABS: PH,URINE 7.5 (5.0-8.0); URINE APPEARANCE CLEAR; URINE BILIRUBIN NEGATIVE (NEGATIVE); URINE COLOR YELLOW; URINE GLUCOSE (UA) NEGATIVE (NEGATIVE); URINE KETONE NEGATIVE (NEGATIVE); URINE LEUK ESTERASE NEGATIVE (NEGATIVE); URINE NITRITE NEGATIVE (NEGATIVE); URINE PROTEIN NEGATIVE (NEGATIVE); URINE UROBILINOGEN 0.2 mg/dL (0.2-1.0)
[2024-08-03] MEDS ORDERED: levETIRAcetam 500 MG TABLET (FP) PO SCH (22:00)
[2024-08-03] MEDS ORDERED: DONEPEZIL HCL 5 MG TABLET (FP) ONE (23:51)
[2024-08-03] MEDS ORDERED: levETIRAcetam 500 MG TABLET (FP) PO ONE (23:51)
[2024-08-03] MEDS: levETIRAcetam 500 MG TABLET (FP) PO SCH (23:59)
[2024-08-03] MEDS: DONEPEZIL HCL 5 MG TABLET (FP) PO SCH (23:59)
[2024-08-04 06:38] VITALS: RESP 18
[2024-08-04 08:04] LABS: CHLORIDE 107 mmol/L (98-107); POTASSIUM 3.8 mmol/L (3.5-5.1); SODIUM 141 mmol/L (136-145)
[2024-08-04 08:08] LABS: CALCIUM 8.9 mg/dL (8.5-10.1)
[2024-08-04 08:09] LABS: ALBUMIN 3.2 g/dl (3.4-5.0); ANION GAP 9 mmol/L (4-13); CO2 25 mmol/L (21-32); GLUCOSE,RANDOM 76 mg/dL (74-106)
[2024-08-04 08:12] LABS: CREATININE 0.6 mg/dL (0.55-1.3); SGOT/AST 23 U/L (15-37); SGPT/ALT 15 U/L (13-61)
[2024-08-04 08:13] LABS: BILIRUBIN,TOTAL 0.6 mg/dL (0.2-1)
[2024-08-04 08:14] LABS: TOT PROT 6.3 g/dl (6.4-8.2)
[2024-08-04 08:15] LABS: ALK PHOS 95 U/L (45-117)
[2024-08-04] MEDS ORDERED: ASPIRIN COATED 81 MG TABLET.EC ONE (08:42)
[2024-08-04] MEDS ORDERED: levETIRAcetam 500 MG TABLET (FP) PO ONE (08:42)
[2024-08-04] MEDS ORDERED: LEVOTHYROXINE NA 75 MCG TABLET (FP) ONE (08:43)
[2024-08-04] MEDS ORDERED: CLOPIDOGREL BISULFATE 75 MG TABLET (FP) ONE (08:43)
[2024-08-04] MEDS ORDERED: ENOXAPARIN NA (PORCINE) 40 MG/0.4 ML DISP.SYRIN SQ ONE (08:43)
[2024-08-04] MEDS ORDERED: SERTRALINE HCL 50 MG TABLET (FP) ONE (08:43)
[2024-08-04 08:50] LABS: HEMATOCRIT 34.8 % (32.4-45.2); HEMOGLOBIN 11.7 GM/dL (10.7-15.3); MCH 29.4 pg (25.7-33.7); MCHC 33.7 g/dl (32.0-36.0); MEAN PLT VOLUME 7.2 fl (7.5-11.1); PLATELET COUNT 240 10^3/uL (134-434); WHITE BLOOD COUNT 3.9 K/mm3 (4.0-10.0)
[2024-08-04] MEDS: ASPIRIN COATED 81 MG TABLET.EC PO SCH (09:31)
[2024-08-04] MEDS: LEVOTHYROXINE NA 75 MCG TABLET (FP) PO SCH (09:31)
[2024-08-04] MEDS: SERTRALINE HCL 25 MG TABLET (FP) PO SCH (09:32)
[2024-08-04] MEDS: TOLTERODINE TARTRATE LA 2 MG CAP.SR.24H PO SCH (09:32)
[2024-08-04] MEDS: CLOPIDOGREL BISULFATE 75 MG TABLET (FP) PO SCH (09:33)
[2024-08-04] MEDS: ENOXAPARIN NA (PORCINE) 40 MG/0.4 ML DISP.SYRIN SQ SCH (09:33)
[2024-08-04] MEDS: ROSUVASTATIN CA 20 MG TABLET PO SCH (22:35)
[2024-08-05] MEDS ORDERED: guaiFENesin 200 MG/10 ML 10 ML UNIT-DOSE CUPS PO PRN (20:04)
[2024-08-06 09:17] LABS: BASO % 0.8 % (0-2.0); EOS % 5.4 % (0-4.5); HEMATOCRIT 37.7 % (32.4-45.2); HEMOGLOBIN 12.9 GM/dL (10.7-15.3); LYMPH % 24.1 % (8-40); MCH 30.1 pg (25.7-33.7); MCHC 34.2 g/dl (32.0-36.0); MONO % 10.5 % (3.8-10.2); NEUT % 59.2 % (42.8-82.8); PLATELET COUNT 279 10^3/uL (134-434); RBC 4.28 M/mm3 (3.60-5.2); RDW 13.3 % (11.6-15.6); WHITE BLOOD COUNT 4.9 K/mm3 (4.0-10.0)
[2024-08-06 09:32] LABS: POTASSIUM 4.2 mmol/L (3.5-5.1)
[2024-08-06 09:38] LABS: ALBUMIN 3.2 g/dl (3.4-5.0); CALCIUM 9.4 mg/dL (8.5-10.1)
[2024-08-06 09:39] LABS: BLOOD UREA NITROGEN 9.5 mg/dL (7-18); MAGNESIUM 2.2 mg/dL (1.8-2.4)
[2024-08-06 09:42] LABS: CREATININE 0.6 mg/dL (0.55-1.3)
[2024-08-06 09:43] LABS: BILIRUBIN,TOTAL 0.4 mg/dL (0.2-1); TOT PROT 6.7 g/dl (6.4-8.2)
[2024-08-07 08:44] LABS: EOS % 5.2 % (0-4.5); HEMATOCRIT 37.7 % (32.4-45.2); HEMOGLOBIN 12.4 GM/dL (10.7-15.3); LYMPH % 25.2 % (8-40); MCHC 32.8 g/dl (32.0-36.0); MEAN CELL VOLUME 88.2 fl (80-96); MEAN PLT VOLUME 7.3 fl (7.5-11.1); MONO % 10.4 % (3.8-10.2); NEUT % 58.2 % (42.8-82.8); PLATELET COUNT 275 10^3/uL (134-434); RBC 4.28 M/mm3 (3.60-5.2); RDW 12.8 % (11.6-15.6); WHITE BLOOD COUNT 5.4 K/mm3 (4.0-10.0)
[2024-08-07 09:05] LABS: POTASSIUM 3.9 mmol/L (3.5-5.1)
[2024-08-07 09:08] LABS: ALBUMIN 3.2 g/dl (3.4-5.0); BLOOD UREA NITROGEN 13.5 mg/dL (7-18); MAGNESIUM 2.2 mg/dL (1.8-2.4)
[2024-08-07 09:11] LABS: CREATININE 0.6 mg/dL (0.55-1.3)
[2024-08-07 09:12] LABS: BILIRUBIN,TOTAL 0.3 mg/dL (0.2-1)
[2024-08-07 09:13] LABS: TOT PROT 6.4 g/dl (6.4-8.2)
[2024-08-07 15:20] VITALS: BP 92/63; PULSE 86; TEMP 97.5
== END 2024-08-07 20:07 ==
LOC: JER 12:03 → INTOOBSV 16:57 → JERBED 16:57 → UNDOADMOB 16:57 → OBSVTOIN 16:57 → JERBED 08-04 13:22 → J8W 08-04 13:22
PROVIDERS: ADMIT Internal Medicine
PROC: 3E033NZ Introduction of Analgesics, Hypnotics, Sedatives into Peripheral Vein, Percutaneous Approach (ICD-10-PCS; principal; 2024-08-05)
PROC: 3E023GC Introduction of Other Therapeutic Substance into Muscle, Percutaneous Approach (ICD-10-PCS; 2024-08-05)
DX: R55 Syncope and collapse (principal); G40.909 Epilepsy, unspecified, not intractable, without status epilepticus; I25.10 Atherosclerotic heart disease of native coronary artery without angina pectoris; I10 Essential (primary) hypertension; E03.9 Hypothyroidism, unspecified; E78.5 Hyperlipidemia, unspecified; Z95.1 Presence of aortocoronary bypass graft; W18.39XA Other fall on same level, initial encounter; Y93.89 Activity, other specified; Y92.003 Bedroom of unspecified non-institutional (private) residence as the place of occurrence of the external cause; F03.90 Unspecified dementia, unspecified severity, without behavioral disturbance, psychotic disturbance, mood disturbance, and anxiety; N31.2 Flaccid neuropathic bladder, not elsewhere classified
CPT/HCPCS: 0241U-QW; 36415; 70450-TC; 71045-TC-FY; 72125-TC; 80053; 80307; 81003; 82550; 83735; 84100; 84484; 85025; 85027; 85610; 85730; 87086; 93005; 93010; 96372; 96374; 97116-GP; 97161-GP; 99285-25; G0378; J0131

== ENCOUNTER 2024-11-19 12:45 | Inpatient (IN) | payer OTHER ==
[2024-11-19 13:05] VITALS: BMI 24.8
[2024-11-19 14:20] LABS: ABSOLUTE IMMATURE GRANULOCYTES 0.01 x10^3/uL (0.0-0.031); BASOPHILS # 0.05 x10^3/uL (0.01-0.08); EOSINOPHIL % 2.3 % (0.7-5.8); EOSINOPHILS # 0.14 x10^3/uL (0.04-0.36); HEMATOCRIT 36.5 % (34.1-44.9); HEMOGLOBIN 11.6 g/dL (11.2-15.7); MCHC 31.8 g/dl (32.2-35.5); MEAN CELL VOLUME 89.9 fl (79.4-94.8); MEAN PLT VOLUME 8.8 fl (9.4-12.3); MONOCYTE # 0.49 x10^3/uL (0.24-0.86); MONOCYTE % 7.9 % (4.7-12.5); PLATELET COUNT 240 x10^3/uL (182-369); RDW 13.5 % (12.5-17.0)
[2024-11-19 14:34] LABS: INR 1.04 (0.83-1.09); PROTHROMBIN TIME (PATIENT) 11.3 SEC (9.7-13.0)
[2024-11-19 14:36] LABS: ACTIVATED PTT 27.5 SECONDS (25.2-36.5)
[2024-11-19 14:47] LABS: POTASSIUM 3.9 mmol/L (3.5-5.1)
[2024-11-19 14:49] LABS: CALCIUM 9.1 mg/dL (8.5-10.1)
[2024-11-19 14:50] LABS: ALBUMIN 3.4 g/dl (3.4-5.0); BLOOD UREA NITROGEN 22.1 mg/dL (7-18); MAGNESIUM 2.4 mg/dL (1.8-2.4)
[2024-11-19 14:53] LABS: CREATININE 0.8 mg/dL (0.55-1.3); PHOSPHOROUS 3.5 mg/dL (2.5-4.9)
[2024-11-19 14:54] LABS: BILIRUBIN,TOTAL 0.4 mg/dL (0.2-1)
[2024-11-19] MEDS ORDERED: ACETAMINOPHEN 325 MG TABLET (FP) PO PRN (17:47)
[2024-11-19 22:24] LABS: URINE APPEARANCE CLOUDY; URINE BILIRUBIN NEGATIVE (NEGATIVE); URINE COLOR YELLOW; URINE GLUCOSE (UA) NEGATIVE (NEGATIVE); URINE KETONE NEGATIVE (NEGATIVE); URINE LEUK ESTERASE NEGATIVE (NEGATIVE); URINE NITRITE NEGATIVE (NEGATIVE); URINE PROTEIN TRACE (NEGATIVE)
[2024-11-19] MEDS: SODIUM CHLORIDE 1,000 ML IV SCH (22:29)
[2024-11-20 06:33] LABS: HEMATOCRIT 33.1 % (34.1-44.9); HEMOGLOBIN 10.4 g/dL (11.2-15.7); MCHC 31.4 g/dl (32.2-35.5); MEAN CELL VOLUME 90.2 fl (79.4-94.8); MEAN PLT VOLUME 8.6 fl (9.4-12.3); PLATELET COUNT 225 x10^3/uL (182-369); RDW 13.6 % (12.5-17.0)
[2024-11-20 06:56] LABS: POTASSIUM 3.8 mmol/L (3.5-5.1)
[2024-11-20 06:59] LABS: CALCIUM 8.8 mg/dL (8.5-10.1)
[2024-11-20 07:00] LABS: BLOOD UREA NITROGEN 19.1 mg/dL (7-18); MAGNESIUM 2.4 mg/dL (1.8-2.4)
[2024-11-20 07:03] LABS: CREATININE 0.7 mg/dL (0.55-1.3); PHOSPHOROUS 3.4 mg/dL (2.5-4.9)
[2024-11-20 07:04] LABS: BILIRUBIN,TOTAL 0.4 mg/dL (0.2-1); TOT PROT 6.2 g/dl (6.4-8.2)
[2024-11-20] MEDS: LEVOTHYROXINE NA 75 MCG TABLET (FP) PO SCH (07:05)
[2024-11-20] MEDS: ROSUVASTATIN CA 20 MG TABLET PO SCH (10:05)
[2024-11-20] MEDS: SERTRALINE HCL 25 MG TABLET (FP) PO SCH (10:05)
[2024-11-20] MEDS: ASPIRIN COATED 81 MG TABLET.EC PO SCH (10:05)
[2024-11-20] MEDS: levETIRAcetam 500 MG TABLET (FP) PO SCH (10:05)
[2024-11-20] MEDS: SENNOSIDES 8.6MG TABLET (FP) PO SCH (10:05)
[2024-11-20] MEDS: CLOPIDOGREL BISULFATE 75 MG TABLET (FP) PO SCH (10:05)
[2024-11-20] MEDS: ASCORBIC ACID 500 MG TABLET (FP) PO SCH (10:05)
[2024-11-20] MEDS: ENOXAPARIN NA (PORCINE) 40 MG/0.4 ML DISP.SYRIN SQ SCH (10:05)
[2024-11-20] MEDS: LORATADINE 10 MG TABLET PO SCH (10:05)
[2024-11-20] MEDS: TOLTERODINE TARTRATE 2 MG TABLET PO SCH (11:18)
[2024-11-20 15:18] VITALS: BP 120/52; PULSE 63; RESP 18; TEMP 98.4
[2024-11-20] MEDS ORDERED: DONEPEZIL HCL 5 MG TABLET (FP) PO SCH (22:00)
[2024-11-21] MEDS ORDERED: TOLTERODINE TARTRATE 2 MG TABLET PO SCH (10:00)
== END 2024-11-20 17:28 | disposition home or self-care (01) | DRG 641 ==
LOC: JER 12:45 → JERBED 16:07 → OBSVTOIN 17:51 → J5S 18:07 → J4W 11-20 03:51
PROVIDERS: ADMIT Internal Medicine; ATTEND Internal Medicine
DX: E86.0 Dehydration (principal); R29.6 Repeated falls; F03.90 Unspecified dementia, unspecified severity, without behavioral disturbance, psychotic disturbance, mood disturbance, and anxiety; I10 Essential (primary) hypertension; G40.909 Epilepsy, unspecified, not intractable, without status epilepticus; R26.81 Unsteadiness on feet; I95.1 Orthostatic hypotension; I25.10 Atherosclerotic heart disease of native coronary artery without angina pectoris; E78.5 Hyperlipidemia, unspecified; E03.9 Hypothyroidism, unspecified; Z95.5 Presence of coronary angioplasty implant and graft
CPT/HCPCS: 0241U-QW; 36415; 70450-TC; 71045-TC-FY; 72125-TC; 72170-TC-FY; 73560-TC-LT-FY; 73590-TC-LT-FY; 80053; 81003; 82550; 82553; 83735; 84100; 84484; 85025; 85027; 85610; 85730; 86850; 86900; 86901; 87086; 93005; 93010; 97116-GP; 97161-GP; 99285-25; G0378

== ENCOUNTER 2024-11-23 12:41 | Inpatient (IN) | payer OTHER ==
[2024-11-23] MEDS: ACETAMINOPHEN 325 MG TABLET (FP) PO ONE (13:32)
[2024-11-23] MEDS ORDERED: ACETAMINOPHEN 325 MG TABLET (FP) ONE (13:33)
[2024-11-23 14:02] LABS: ABSOLUTE IMMATURE GRANULOCYTES 0.03 x10^3/uL (0.0-0.031); BASOPHILS # 0.05 x10^3/uL (0.01-0.08); EOSINOPHIL % 1.3 % (0.7-5.8); EOSINOPHILS # 0.08 x10^3/uL (0.04-0.36); HEMATOCRIT 33.4 % (34.1-44.9); HEMOGLOBIN 10.7 g/dL (11.2-15.7); MEAN CELL VOLUME 90.3 fl (79.4-94.8); MONOCYTE # 0.44 x10^3/uL (0.24-0.86); MONOCYTE % 7.4 % (4.7-12.5); PLATELET COUNT 241 x10^3/uL (182-369); RDW 13.5 % (12.5-17.0)
[2024-11-23 14:09] LABS: INR 0.99 (0.83-1.09); PROTHROMBIN TIME (PATIENT) 10.8 SEC (9.7-13.0)
[2024-11-23 14:11] LABS: ACTIVATED PTT 27.5 SECONDS (25.2-36.5)
[2024-11-23 14:21] LABS: POTASSIUM 3.7 mmol/L (3.5-5.1)
[2024-11-23 14:23] LABS: CALCIUM 9.3 mg/dL (8.5-10.1)
[2024-11-23 14:24] LABS: ALBUMIN 3.5 g/dl (3.4-5.0); BLOOD UREA NITROGEN 18.5 mg/dL (7-18)
[2024-11-23 14:27] LABS: CREATININE 0.7 mg/dL (0.55-1.3)
[2024-11-23 14:28] LABS: BILIRUBIN,TOTAL 0.4 mg/dL (0.2-1); TOT PROT 6.9 g/dl (6.4-8.2)
[2024-11-23] MEDS: DONEPEZIL HCL 5 MG TABLET (FP) PO SCH (21:20)
[2024-11-23] MEDS: levETIRAcetam 500 MG TABLET (FP) PO SCH (21:20)
[2024-11-23] MEDS: HEPARIN NA (PORCINE) 5,000 UNITS/ML 1ML VIAL SQ SCH (21:20)
[2024-11-23 23:26] VITALS: BMI 29.7
[2024-11-24] MEDS: LEVOTHYROXINE NA 75 MCG TABLET (FP) PO SCH (06:52)
[2024-11-24 08:11] LABS: ABSOLUTE IMMATURE GRANULOCYTES 0.01 x10^3/uL (0.0-0.031); BASOPHILS # 0.06 x10^3/uL (0.01-0.08); EOSINOPHIL % 6.7 % (0.7-5.8); HEMATOCRIT 35.8 % (34.1-44.9); HEMOGLOBIN 11.1 g/dL (11.2-15.7); MEAN CELL VOLUME 92.5 fl (79.4-94.8); MEAN PLT VOLUME 9.3 fl (9.4-12.3); MONOCYTE # 0.43 x10^3/uL (0.24-0.86); MONOCYTE % 9.6 % (4.7-12.5); PLATELET COUNT 248 x10^3/uL (182-369); RDW 13.7 % (12.5-17.0)
[2024-11-24 08:19] LABS: POTASSIUM 3.6 mmol/L (3.5-5.1)
[2024-11-24 08:53] LABS: CALCIUM 9.3 mg/dL (8.5-10.1)
[2024-11-24 08:57] LABS: CREATININE 0.6 mg/dL (0.55-1.3)
[2024-11-24] MEDS: CLOPIDOGREL BISULFATE 75 MG TABLET (FP) PO SCH (10:26)
[2024-11-24] MEDS: ROSUVASTATIN CA 20 MG TABLET PO SCH (10:26)
[2024-11-24] MEDS: SENNOSIDES 8.6MG TABLET (FP) PO SCH (10:26)
[2024-11-24] MEDS: SERTRALINE HCL 25 MG TABLET (FP) PO SCH (10:26)
[2024-11-24] MEDS: ASPIRIN COATED 81 MG TABLET.EC PO SCH (10:26)
[2024-11-24] MEDS: TOLTERODINE TARTRATE LA 4 MG CAP.SR.24H (FP) PO SCH (16:00)
[2024-11-24 21:13] VITALS: RESP 18
[2024-11-25 07:52] LABS: HEMATOCRIT 32.5 % (34.1-44.9); HEMOGLOBIN 10.2 g/dL (11.2-15.7); MCHC 31.4 g/dl (32.2-35.5); MEAN CELL VOLUME 90.5 fl (79.4-94.8); MEAN PLT VOLUME 9.3 fl (9.4-12.3); PLATELET COUNT 256 x10^3/uL (182-369); RDW 13.5 % (12.5-17.0)
[2024-11-25 08:32] LABS: POTASSIUM 3.8 mmol/L (3.5-5.1)
[2024-11-25 08:49] LABS: BLOOD UREA NITROGEN 11.6 mg/dL (7-18); CALCIUM 8.7 mg/dL (8.5-10.1)
[2024-11-25 08:53] LABS: CREATININE 0.6 mg/dL (0.55-1.3)
[2024-11-26 14:58] VITALS: BP 118/55; PULSE 71; TEMP 98.6
== END 2024-11-26 16:15 | DRG 312 ==
LOC: JER 12:41 → JERBED 14:52 → OBSVTOIN 16:24 → J4W 20:33
PROVIDERS: ADMIT Internal Medicine; ATTEND Internal Medicine
DX: R55 Syncope and collapse (principal); I10 Essential (primary) hypertension; E03.9 Hypothyroidism, unspecified; I25.10 Atherosclerotic heart disease of native coronary artery without angina pectoris; F03.90 Unspecified dementia, unspecified severity, without behavioral disturbance, psychotic disturbance, mood disturbance, and anxiety; N31.9 Neuromuscular dysfunction of bladder, unspecified; G40.909 Epilepsy, unspecified, not intractable, without status epilepticus; R29.6 Repeated falls; Z95.5 Presence of coronary angioplasty implant and graft; W18.30XA Fall on same level, unspecified, initial encounter; Y93.9 Activity, unspecified; Y92.099 Unspecified place in other non-institutional residence as the place of occurrence of the external cause; Y99.9 Unspecified external cause status
CPT/HCPCS: 0241U-QW; 36415; 70450-TC; 71045-TC-FY; 72125-TC; 72170-TC-FY; 80048; 80053; 80307; 82550; 82553; 82962; 83735; 84484; 85025; 85027; 85610; 85730; 86850; 86900; 86901; 93005; 93010; 97116-GP; 97162-GP; 99285-25; G0378; J1644

== ENCOUNTER 2024-12-25 11:16 | Inpatient (IN) | payer OTHER ==
[2024-12-25 13:17] LABS: ABSOLUTE IMMATURE GRANULOCYTES 0.03 x10^3/uL (0.0-0.031); BASOPHILS # 0.03 x10^3/uL (0.01-0.08); HEMATOCRIT 39.3 % (34.1-44.9); HEMOGLOBIN 13.2 g/dL (11.2-15.7); MCHC 33.6 g/dl (32.2-35.5); MEAN CELL VOLUME 86.8 fl (79.4-94.8); MEAN PLT VOLUME 9.3 fl (9.4-12.3); MONOCYTE # 0.86 x10^3/uL (0.24-0.86); MONOCYTE % 9.5 % (4.7-12.5); PLATELET COUNT 298 x10^3/uL (182-369); RDW 12.9 % (12.5-17.0)
[2024-12-25 13:18] LABS: VENOUS BASE EXCESS 4.6 mmol/L (-2-2); VENOUS O2 SATURATION 34.2 % (70-80); VENOUS PCO2 49.8 mmHg (38-52); VENOUS PH 7.404 (7.310-7.410)
[2024-12-25 13:27] LABS: INR 1.11 (0.83-1.09); PROTHROMBIN TIME (PATIENT) 12.2 SEC (9.7-13.0)
[2024-12-25 13:30] LABS: ACTIVATED PTT 24.2 SECONDS (25.2-36.5)
[2024-12-25 13:40] LABS: POTASSIUM 3.3 mmol/L (3.5-5.1)
[2024-12-25 13:41] LABS: CALCIUM 9.9 mg/dL (8.5-10.1)
[2024-12-25 13:42] LABS: ALBUMIN 3.8 g/dl (3.4-5.0); BLOOD UREA NITROGEN 20.7 mg/dL (7-18); MAGNESIUM 2.5 mg/dL (1.8-2.4)
[2024-12-25 13:45] LABS: CREATININE 0.9 mg/dL (0.55-1.3); PHOSPHOROUS 3.2 mg/dL (2.5-4.9)
[2024-12-25 13:46] LABS: BILIRUBIN,TOTAL 0.6 mg/dL (0.2-1); TOT PROT 7.7 g/dl (6.4-8.2)
[2024-12-25] MEDS ORDERED: levETIRAcetam 500 MG/5 ML INJECTION VIAL IVPB ONE (13:53)
[2024-12-25] MEDS: levETIRAcetam 500 MG/5 ML INJECTION VIAL IVPB ONE (13:57)
[2024-12-25] MEDS ORDERED: KCL 10 MEQ IVPB 10 MEQ/100 ML INFUS.BAG IVPB ONE (14:19)
[2024-12-25 14:46] LABS: EPI CELLS 29 /uL (0-25.1); HYALINE CASTS 3 /uL (0-3.1); URINE APPEARANCE TURBID; URINE BACTERIA >9,000 /uL (0-1359); URINE BILIRUBIN NEGATIVE (NEGATIVE); URINE COLOR YELLOW; URINE GLUCOSE (UA) NEGATIVE (NEGATIVE); URINE KETONE TRACE (NEGATIVE); URINE LEUK ESTERASE 3+ (NEGATIVE); URINE NITRITE POSITIVE (NEGATIVE); URINE PROTEIN 3+ (NEGATIVE); URINE WBC 12182 /uL (0-25.8)
[2024-12-25] MEDS: KCL 10 MEQ IVPB 10 MEQ/100 ML INFUS.BAG IVPB SCH (14:58)
[2024-12-25 15:08] LABS: URINE RBC 201.5 /uL (0-23.9)
[2024-12-25 15:10] LABS: YEAST NONE SEEN (NEGATIVE)
[2024-12-25 15:27] LABS: POTASSIUM 4.7 mmol/L (3.5-5.1)
[2024-12-25 15:29] LABS: MAGNESIUM 2.4 mg/dL (1.8-2.4)
[2024-12-25] MEDS ORDERED: CEFTRIAXONE 1 GM/50 ML BAG ONE (15:52)
[2024-12-25] MEDS ORDERED: levETIRAcetam 500 MG TABLET (FP) PO ONE (18:02)
[2024-12-25] MEDS: levETIRAcetam 500 MG TABLET (FP) PO ONE (18:10)
[2024-12-25] MEDS ORDERED: LORazepam 2 MG/ML SDV VIAL IVPUSH PRN (18:35)
[2024-12-25] MEDS: ROSUVASTATIN CA 20 MG TABLET PO SCH (22:59)
[2024-12-25] MEDS: DONEPEZIL HCL 5 MG TABLET (FP) PO SCH (23:00)
[2024-12-25] MEDS: levETIRAcetam 500 MG/5 ML INJECTION VIAL IVPB SCH (23:00)
[2024-12-25] MEDS: HEPARIN NA (PORCINE) 5,000 UNITS/ML 1ML VIAL SQ SCH (23:00)
[2024-12-26] MEDS: LEVOTHYROXINE NA 75 MCG TABLET (FP) PO SCH (07:03)
[2024-12-26 08:34] LABS: HEMOGLOBIN 10.7 g/dL (11.2-15.7); MCHC 33.4 g/dl (32.2-35.5); MEAN CELL VOLUME 87.9 fl (79.4-94.8); MEAN PLT VOLUME 9.6 fl (9.4-12.3); PLATELET COUNT 255 x10^3/uL (182-369)
[2024-12-26 08:49] LABS: CHLORIDE 98 mmol/L (98-107); SODIUM 136 mmol/L (136-145)
[2024-12-26 08:51] LABS: POTASSIUM 2.7 mmol/L (3.5-5.1)
[2024-12-26 08:54] LABS: CALCIUM 9.2 mg/dL (8.5-10.1)
[2024-12-26 08:55] LABS: ANION GAP 7 mmol/L (4-13); CO2 31 mmol/L (21-32); GLUCOSE,RANDOM 90 mg/dL (74-106); MAGNESIUM 2.3 mg/dL (1.8-2.4)
[2024-12-26 08:58] LABS: CREATININE 0.6 mg/dL (0.55-1.3); PHOSPHOROUS 2.8 mg/dL (2.5-4.9)
[2024-12-26] MEDS: SERTRALINE HCL 25 MG TABLET (FP) PO SCH (09:51)
[2024-12-26] MEDS: CLOPIDOGREL BISULFATE 75 MG TABLET (FP) PO SCH (09:51)
[2024-12-26] MEDS: KCL 10 MEQ IVPB 10 MEQ/100 ML INFUS.BAG IVPB SCH (09:58)
[2024-12-26] MEDS ORDERED: ERYTHROMYCIN 0.5% OPHTHALMIC OINTMENT 3.5 GM TUBE OS SCH (11:00)
[2024-12-26] MEDS: POTASSIUM CHLORIDE ORAL LIQUID 20 MEQ/15 ML PO ONE (11:03)
[2024-12-26] MEDS: CEFTRIAXONE 1 GM in DEXTROSE 5%-WATER - 50 ML IVPB SCH (14:32)
[2024-12-26] MEDS: ERYTHROMYCIN 0.5% OPHTHALMIC OINTMENT 3.5 GM TUBE OS SCH (14:33)
[2024-12-26 17:08] LABS: POTASSIUM 3.6 mmol/L (3.5-5.1)
[2024-12-26 17:12] LABS: ALBUMIN 2.8 g/dl (3.4-5.0)
[2024-12-26 17:14] LABS: BILIRUBIN,DIRECT 0.1 mg/dL (0.0-0.2)
[2024-12-26 17:15] LABS: BILIRUBIN,TOTAL 0.3 mg/dL (0.2-1); TOT PROT 5.8 g/dl (6.4-8.2)
[2024-12-26 18:54] VITALS: BMI 24.5
[2024-12-27 11:47] LABS: HEMATOCRIT 35.8 % (34.1-44.9); HEMOGLOBIN 11.7 g/dL (11.2-15.7); MCHC 32.7 g/dl (32.2-35.5); MEAN CELL VOLUME 88.6 fl (79.4-94.8); MEAN PLT VOLUME 9.6 fl (9.4-12.3); PLATELET COUNT 287 x10^3/uL (182-369)
[2024-12-27 12:16] LABS: POTASSIUM 3.5 mmol/L (3.5-5.1)
[2024-12-27 12:18] LABS: BLOOD UREA NITROGEN 8.8 mg/dL (7-18); CALCIUM 8.8 mg/dL (8.5-10.1)
[2024-12-27 12:19] LABS: ALBUMIN 2.9 g/dl (3.4-5.0); MAGNESIUM 2.3 mg/dL (1.8-2.4)
[2024-12-27 12:22] LABS: CREATININE 0.7 mg/dL (0.55-1.3)
[2024-12-27 12:23] LABS: BILIRUBIN,TOTAL 0.3 mg/dL (0.2-1)
[2024-12-29 14:24] VITALS: BP 135/68; PULSE 67; RESP 15; TEMP 98
== END 2024-12-29 17:45 | DRG 690 ==
LOC: JER 11:16 → JERBED 15:33 → J7W 21:34
PROVIDERS: ADMIT Student in an Organized Health Care Education/Training Program
DX: N39.0 Urinary tract infection, site not specified (principal); E87.1 Hypo-osmolality and hyponatremia; I10 Essential (primary) hypertension; F03.90 Unspecified dementia, unspecified severity, without behavioral disturbance, psychotic disturbance, mood disturbance, and anxiety; G40.909 Epilepsy, unspecified, not intractable, without status epilepticus; E03.9 Hypothyroidism, unspecified; I25.10 Atherosclerotic heart disease of native coronary artery without angina pectoris; E87.6 Hypokalemia; R74.01 Elevation of levels of liver transaminase levels; H01.006 Unspecified blepharitis left eye, unspecified eyelid; D64.9 Anemia, unspecified; B96.20 Unspecified Escherichia coli [E. coli] as the cause of diseases classified elsewhere
CPT/HCPCS: 0241U-QW; 36415; 70450-TC; 71045-TC-FY; 72125-TC; 80048; 80053; 80076; 80177; 81003; 82550; 82553; 82803; 82962; 83605; 83735; 84100; 84132; 84439; 84443; 84484; 85025; 85027; 85610; 85730; 86850; 86900; 86901; 87040; 87086; 93005; 93010; 97116-GP; 97161-GP; 99285-25; G0378

== ENCOUNTER 2025-01-23 11:47 | Inpatient (IN) | payer OTHER ==
[2025-01-23 12:09] VITALS: BMI 26.8
[2025-01-23 13:10] LABS: ABSOLUTE IMMATURE GRANULOCYTES 0.01 x10^3/uL (0.0-0.031); BASOPHILS # 0.05 x10^3/uL (0.01-0.08); EOSINOPHIL % 4.2 % (0.7-5.8); EOSINOPHILS # 0.16 x10^3/uL (0.04-0.36); MCHC 31.9 g/dl (32.2-35.5); MEAN CELL VOLUME 91.5 fl (79.4-94.8); MEAN PLT VOLUME 9.1 fl (9.4-12.3); MONOCYTE # 0.34 x10^3/uL (0.24-0.86); MONOCYTE % 8.9 % (4.7-12.5); RDW 12.8 % (12.5-17.0)
[2025-01-23 13:16] LABS: BG HCT 37.0 % (32.4-45.2); VENOUS BASE EXCESS 0.2 mmol/L (-2-2); VENOUS O2 SATURATION 37.4 % (70-80); VENOUS PCO2 50.2 mmHg (38-52); VENOUS PH 7.342 (7.310-7.410)
[2025-01-23 13:30] LABS: GLUCOSE,RANDOM 89.0 mg/dL (74-106)
[2025-01-23 13:32] LABS: CO2 27.0 mmol/L (21-32)
[2025-01-23 13:34] LABS: CREATININE 0.6 mg/dL (0.55-1.3); SGOT/AST 21.0 U/L (15-37); SGPT/ALT 17.0 U/L (13-61)
[2025-01-23 13:35] LABS: TOT PROT 6.8 g/dl (6.4-8.2)
[2025-01-23 13:36] LABS: ALK PHOS 100.0 U/L (45-117)
[2025-01-23] MEDS ORDERED: POTASSIUM CHLORIDE TABS 20 MEQ TABLET.ER (FP) PO ONE (14:06)
[2025-01-23] MEDS ORDERED: levETIRAcetam 500 MG TABLET (FP) PO ONE ×2 (14:07→21:16)
[2025-01-23] MEDS ORDERED: POTASSIUM CHLORIDE ORAL LIQUID 20 MEQ/15 ML ONE (14:09)
[2025-01-23 14:24] LABS: HCV DIAGNOSTIC IN-HOUSE W/RFLX NON-REACTIVE (NONREACTIVE); HIV INTERPRETATION NEGATIVE (NEGATIVE)
[2025-01-23] MEDS: levETIRAcetam 500 MG TABLET (FP) PO ONE (14:26)
[2025-01-23] MEDS: POTASSIUM CHLORIDE ORAL LIQUID 20 MEQ/15 ML PO ONE (14:26)
[2025-01-23 14:35] LABS: URINE APPEARANCE CLEAR; URINE BILIRUBIN NEGATIVE (NEGATIVE); URINE COLOR YELLOW; URINE GLUCOSE (UA) NEGATIVE (NEGATIVE); URINE KETONE NEGATIVE (NEGATIVE); URINE LEUK ESTERASE NEGATIVE (NEGATIVE); URINE NITRITE NEGATIVE (NEGATIVE); URINE PROTEIN NEGATIVE (NEGATIVE); URINE UROBILINOGEN 0.2 mg/dL (0.2-1.0)
[2025-01-23] MEDS ORDERED: DONEPEZIL HCL 5 MG TABLET (FP) ONE (21:16)
[2025-01-23] MEDS: levETIRAcetam 500 MG TABLET (FP) PO SCH (21:19)
[2025-01-23] MEDS: DONEPEZIL HCL 5 MG TABLET (FP) PO SCH (21:19)
[2025-01-24 01:16] VITALS: RESP 18
[2025-01-24] MEDS: LEVOTHYROXINE NA 75 MCG TABLET (FP) PO SCH (06:19)
[2025-01-24 07:23] LABS: ABSOLUTE IMMATURE GRANULOCYTES 0.00 x10^3/uL (0.0-0.031); BASOPHILS # 0.06 x10^3/uL (0.01-0.08); EOSINOPHIL % 4.1 % (0.7-5.8); EOSINOPHILS # 0.20 x10^3/uL (0.04-0.36); MCHC 31.9 g/dl (32.2-35.5); MEAN CELL VOLUME 91.4 fl (79.4-94.8); MEAN PLT VOLUME 9.3 fl (9.4-12.3); MONOCYTE # 0.45 x10^3/uL (0.24-0.86); MONOCYTE % 9.1 % (4.7-12.5); RDW 12.7 % (12.5-17.0)
[2025-01-24 07:49] LABS: CO2 28.0 mmol/L (21-32); GLUCOSE,RANDOM 86.0 mg/dL (74-106)
[2025-01-24 07:51] LABS: CREATININE 0.6 mg/dL (0.55-1.3)
[2025-01-24 07:52] LABS: SGOT/AST 24.0 U/L (15-37); SGPT/ALT 18.0 U/L (13-61)
[2025-01-24 07:53] LABS: TOT PROT 6.6 g/dl (6.4-8.2)
[2025-01-24 07:54] LABS: ALK PHOS 101.0 U/L (45-117)
[2025-01-24] MEDS: ASPIRIN COATED 81 MG TABLET.EC PO SCH (09:34)
[2025-01-24] MEDS: ROSUVASTATIN CA 20 MG TABLET PO SCH (09:34)
[2025-01-24] MEDS: SERTRALINE HCL 25 MG TABLET (FP) PO SCH (09:34)
[2025-01-24] MEDS: ENOXAPARIN NA (PORCINE) 40 MG/0.4 ML DISP.SYRIN SQ SCH (09:35)
[2025-01-24] MEDS: CLOPIDOGREL BISULFATE 75 MG TABLET (FP) PO SCH (09:35)
[2025-01-24] MEDS: levETIRAcetam 500 MG TABLET (FP) PO SCH (22:25)
[2025-01-24] MEDS: DONEPEZIL HCL 5 MG TABLET (FP) PO SCH (22:25)
[2025-01-25 08:46] LABS: CO2 28.0 mmol/L (21-32)
[2025-01-25 08:49] LABS: CREATININE 0.7 mg/dL (0.55-1.3)
[2025-01-25 08:50] LABS: GLUCOSE,RANDOM 94.0 mg/dL (74-106)
[2025-01-25 14:07] VITALS: BP 115/58; PULSE 72; TEMP 97.7
== END 2025-01-25 14:52 | disposition home or self-care (01) | DRG 101 ==
LOC: JER 11:47 → JERBED 17:50 → J4W 23:23 → OBSVTOIN 01-24 10:06
PROVIDERS: ADMIT Student in an Organized Health Care Education/Training Program; ATTEND Student in an Organized Health Care Education/Training Program
DX: G40.909 Epilepsy, unspecified, not intractable, without status epilepticus (principal); I25.10 Atherosclerotic heart disease of native coronary artery without angina pectoris; E03.9 Hypothyroidism, unspecified; I10 Essential (primary) hypertension; E78.5 Hyperlipidemia, unspecified; N31.9 Neuromuscular dysfunction of bladder, unspecified; F03.90 Unspecified dementia, unspecified severity, without behavioral disturbance, psychotic disturbance, mood disturbance, and anxiety; R82.71 Bacteriuria
CPT/HCPCS: 36415; 70450-TC; 80048; 80053; 80177; 81003; 82607; 82803; 83605; 83735; 84100; 84443; 84484; 85025; 85651; 86140; 86803; 87086; 87389; 87637-QW; 93005; 93010; 97116-GP; 97161-GP; 99285-25; G0378

== ENCOUNTER 2025-01-26 08:57 | Observation (INO) | payer OTHER ==
[2025-01-26 09:58] VITALS: BMI 27.0
[2025-01-26 10:16] LABS: ABSOLUTE IMMATURE GRANULOCYTES 0.03 x10^3/uL (0.0-0.031); BASOPHILS # 0.03 x10^3/uL (0.01-0.08); EOSINOPHIL % 1.5 % (0.7-5.8); EOSINOPHILS # 0.11 x10^3/uL (0.04-0.36); MCHC 32.3 g/dl (32.2-35.5); MEAN CELL VOLUME 91.0 fl (79.4-94.8); MEAN PLT VOLUME 9.0 fl (9.4-12.3); MONOCYTE # 0.67 x10^3/uL (0.24-0.86); MONOCYTE % 8.9 % (4.7-12.5); RDW 13.0 % (12.5-17.0)
[2025-01-26] MEDS ORDERED: ACETAMINOPHEN 500 MG TABLET (FP) ONE (10:38)
[2025-01-26] MEDS: ACETAMINOPHEN 500 MG TABLET (FP) PO ONE (10:41)
[2025-01-26 10:43] LABS: CO2 28.0 mmol/L (21-32); GLUCOSE,RANDOM 99.0 mg/dL (74-106)
[2025-01-26 10:46] LABS: CREATININE 0.7 mg/dL (0.55-1.3)
[2025-01-26 16:03] LABS: EPI CELLS 5 /uL (0-25.1); HYALINE CASTS 0 /uL (0-3.1); URINE APPEARANCE CLOUDY; URINE BACTERIA 2759 /uL (0-1359); URINE BILIRUBIN NEGATIVE (NEGATIVE); URINE COLOR YELLOW; URINE GLUCOSE (UA) NEGATIVE (NEGATIVE); URINE KETONE NEGATIVE (NEGATIVE); URINE LEUK ESTERASE 2+ (NEGATIVE); URINE NITRITE POSITIVE (NEGATIVE); URINE PROTEIN NEGATIVE (NEGATIVE); URINE UROBILINOGEN 0.2 mg/dL (0.2-1.0); URINE WBC 24 /uL (0-25.8)
[2025-01-26 16:17] LABS: URINE RBC 82 /uL (0-23.9)
[2025-01-26] MEDS ORDERED: levETIRAcetam 500 MG TABLET (FP) PO ONE (21:12)
[2025-01-26] MEDS ORDERED: DONEPEZIL HCL 5 MG TABLET (FP) ONE (21:12)
[2025-01-26] MEDS ORDERED: ROSUVASTATIN CA 20 MG TABLET ONE (21:12)
[2025-01-26] MEDS: DONEPEZIL HCL 10 MG TABLET (FP) PO SCH (21:13)
[2025-01-26] MEDS: levETIRAcetam 500 MG TABLET (FP) PO SCH (21:13)
[2025-01-26] MEDS: ROSUVASTATIN CA 20 MG TABLET PO SCH (21:13)
[2025-01-27 01:13] VITALS: RESP 18
[2025-01-27] MEDS ORDERED: LEVOTHYROXINE NA 75 MCG TABLET (FP) ONE (06:19)
[2025-01-27 06:39] LABS: CO2 28.0 mmol/L (21-32); GLUCOSE,RANDOM 91.0 mg/dL (74-106)
[2025-01-27 06:42] LABS: CREATININE 0.6 mg/dL (0.55-1.3); SGOT/AST 26.0 U/L (15-37); SGPT/ALT 19.0 U/L (13-61)
[2025-01-27 06:43] LABS: MCHC 31.2 g/dl (32.2-35.5); MEAN CELL VOLUME 91.7 fl (79.4-94.8); MEAN PLT VOLUME 9.3 fl (9.4-12.3); RDW 12.9 % (12.5-17.0); TOT PROT 6.0 g/dl (6.4-8.2)
[2025-01-27 06:45] LABS: ALK PHOS 101.0 U/L (45-117)
[2025-01-27] MEDS: LEVOTHYROXINE NA 75 MCG TABLET (FP) PO SCH (07:58)
[2025-01-27] MEDS: CLOPIDOGREL BISULFATE 75 MG TABLET (FP) PO SCH (09:31)
[2025-01-27] MEDS: SERTRALINE HCL 25 MG TABLET (FP) PO SCH (09:31)
[2025-01-27] MEDS: ENOXAPARIN NA (PORCINE) 40 MG/0.4 ML DISP.SYRIN SQ SCH (09:31)
[2025-01-27] MEDS: ASPIRIN COATED 81 MG TABLET.EC PO SCH (09:31)
[2025-01-27 16:06] VITALS: BP 113/52; PULSE 80; TEMP 99
== END 2025-01-27 17:15 | disposition home health service (06) ==
LOC: JER 08:57 → JERBED 10:55 → J5S 01-27 07:20
PROVIDERS: ADMIT Internal Medicine
PROC: 3E023GC Introduction of Other Therapeutic Substance into Muscle, Percutaneous Approach (ICD-10-PCS; principal; 2025-01-26)
DX: G40.909 Epilepsy, unspecified, not intractable, without status epilepticus (principal); Z74.1 Need for assistance with personal care; N31.2 Flaccid neuropathic bladder, not elsewhere classified; I25.10 Atherosclerotic heart disease of native coronary artery without angina pectoris; F03.90 Unspecified dementia, unspecified severity, without behavioral disturbance, psychotic disturbance, mood disturbance, and anxiety; I10 Essential (primary) hypertension; E78.5 Hyperlipidemia, unspecified; E03.9 Hypothyroidism, unspecified; I35.0 Nonrheumatic aortic (valve) stenosis; Z87.891 Personal history of nicotine dependence
CPT/HCPCS: 36415; 80048; 80053; 80177; 81003; 83735; 84100; 85025; 85027; 87086; 93005; 93010; 96372; 97116-GP; 97161-GP; 99285-25; G0378

== ENCOUNTER 2025-01-30 21:57 | Observation (INO) | payer OTHER ==
[2025-01-30 22:15] VITALS: BMI 21.9
[2025-01-30 23:26] LABS: ABSOLUTE IMMATURE GRANULOCYTES 0.02 x10^3/uL (0.0-0.031); BASOPHILS # 0.07 x10^3/uL (0.01-0.08); EOSINOPHIL % 3.2 % (0.7-5.8); EOSINOPHILS # 0.22 x10^3/uL (0.04-0.36); MCHC 31.9 g/dl (32.2-35.5); MEAN CELL VOLUME 90.7 fl (79.4-94.8); MEAN PLT VOLUME 8.8 fl (9.4-12.3); MONOCYTE # 0.81 x10^3/uL (0.24-0.86); MONOCYTE % 11.7 % (4.7-12.5); RDW 12.5 % (12.5-17.0)
[2025-01-30 23:43] LABS: CO2 28.0 mmol/L (21-32); GLUCOSE,RANDOM 95.0 mg/dL (74-106)
[2025-01-30 23:46] LABS: CREATININE 0.7 mg/dL (0.55-1.3); SGOT/AST 31.0 U/L (15-37); SGPT/ALT 22.0 U/L (13-61)
[2025-01-30 23:48] LABS: TOT PROT 6.6 g/dl (6.4-8.2)
[2025-01-30 23:49] LABS: ALK PHOS 100.0 U/L (45-117)
[2025-01-31 00:35] LABS: HCV DIAGNOSTIC IN-HOUSE W/RFLX NON-REACTIVE (NONREACTIVE)
[2025-01-31 00:36] LABS: HIV INTERPRETATION NEGATIVE (NEGATIVE)
[2025-01-31] MEDS: levETIRAcetam 500 MG/5 ML INJECTION VIAL IVPB ONE (02:33)
[2025-01-31 03:24] LABS: URINE APPEARANCE CLEAR; URINE BILIRUBIN NEGATIVE (NEGATIVE); URINE COLOR YELLOW; URINE GLUCOSE (UA) NEGATIVE (NEGATIVE); URINE KETONE NEGATIVE (NEGATIVE)
[2025-01-31 03:25] LABS: URINE LEUK ESTERASE 1+ (NEGATIVE); URINE NITRITE NEGATIVE (NEGATIVE); URINE PROTEIN NEGATIVE (NEGATIVE); URINE UROBILINOGEN 0.2 mg/dL (0.2-1.0)
[2025-01-31] MEDS: LEVOTHYROXINE NA 75 MCG TABLET (FP) PO SCH (06:46)
[2025-01-31] MEDS: SERTRALINE HCL 25 MG TABLET (FP) PO SCH (09:09)
[2025-01-31] MEDS: ASPIRIN COATED 81 MG TABLET.EC PO SCH (09:09)
[2025-01-31] MEDS: DOXYCYCLINE HYCLATE 100 MG TABLET PO SCH (09:09)
[2025-01-31] MEDS: ENOXAPARIN NA (PORCINE) 40 MG/0.4 ML DISP.SYRIN SQ SCH (09:09)
[2025-01-31] MEDS: levETIRAcetam 500 MG TABLET (FP) PO SCH (09:09)
[2025-01-31] MEDS: CLOPIDOGREL BISULFATE 75 MG TABLET (FP) PO SCH (09:09)
[2025-01-31 10:18] LABS: ABSOLUTE IMMATURE GRANULOCYTES 0.01 x10^3/uL (0.0-0.031); BASOPHILS # 0.06 x10^3/uL (0.01-0.08); EOSINOPHIL % 4.5 % (0.7-5.8); EOSINOPHILS # 0.22 x10^3/uL (0.04-0.36); MCHC 31.8 g/dl (32.2-35.5); MEAN CELL VOLUME 90.9 fl (79.4-94.8); MEAN PLT VOLUME 9.0 fl (9.4-12.3); MONOCYTE # 0.55 x10^3/uL (0.24-0.86); MONOCYTE % 11.3 % (4.7-12.5); RDW 12.7 % (12.5-17.0)
[2025-01-31 11:27] LABS: CO2 29.0 mmol/L (21-32); GLUCOSE,RANDOM 83.0 mg/dL (74-106)
[2025-01-31 11:29] LABS: CREATININE 0.7 mg/dL (0.55-1.3)
[2025-01-31 11:30] LABS: SGOT/AST 27.0 U/L (15-37); SGPT/ALT 18.0 U/L (13-61)
[2025-01-31 11:31] LABS: TOT PROT 5.9 g/dl (6.4-8.2)
[2025-01-31 11:32] LABS: ALK PHOS 95.0 U/L (45-117)
[2025-01-31] MEDS: DONEPEZIL HCL 10 MG TABLET (FP) PO SCH (21:52)
[2025-01-31] MEDS: ROSUVASTATIN CA 20 MG TABLET PO SCH (21:52)
[2025-02-01 06:34] VITALS: TEMP 97.7
[2025-02-01 10:01] LABS: CO2 28.0 mmol/L (21-32); GLUCOSE,RANDOM 88.0 mg/dL (74-106)
[2025-02-01 10:02] LABS: CREATININE 0.6 mg/dL (0.55-1.3); SGPT/ALT 17.0 U/L (13-61)
[2025-02-01 10:03] LABS: TOT PROT 5.8 g/dl (6.4-8.2)
[2025-02-01 10:04] LABS: SGOT/AST 22.0 U/L (15-37)
[2025-02-01 10:05] LABS: ALK PHOS 91.0 U/L (45-117)
[2025-02-01 12:59] VITALS: BP 133/64; PULSE 70; RESP 17
== END 2025-02-01 12:51 | disposition home or self-care (01) ==
LOC: JER 21:57 → JERBED 01-31 → J8W 01-31 05:34
PROVIDERS: ADMIT Student in an Organized Health Care Education/Training Program; ATTEND Nurse Practitioner Acute Care
PROC: 3E023GC Introduction of Other Therapeutic Substance into Muscle, Percutaneous Approach (ICD-10-PCS; principal; 2025-01-31)
PROC: 3E033GC Introduction of Other Therapeutic Substance into Peripheral Vein, Percutaneous Approach (ICD-10-PCS; 2025-01-31)
DX: N39.0 Urinary tract infection, site not specified (principal); G40.909 Epilepsy, unspecified, not intractable, without status epilepticus; F03.90 Unspecified dementia, unspecified severity, without behavioral disturbance, psychotic disturbance, mood disturbance, and anxiety; N31.9 Neuromuscular dysfunction of bladder, unspecified; I25.10 Atherosclerotic heart disease of native coronary artery without angina pectoris; I10 Essential (primary) hypertension; R29.6 Repeated falls; E78.5 Hyperlipidemia, unspecified; E03.9 Hypothyroidism, unspecified; I65.29 Occlusion and stenosis of unspecified carotid artery; Z90.49 Acquired absence of other specified parts of digestive tract; Z87.891 Personal history of nicotine dependence
CPT/HCPCS: 36415; 80048; 80053; 80177; 81003; 83735; 84100; 85025; 86803; 87086; 87389; 93005; 93010; 96372; 96374; 97116-GP; 97161-GP; 99285-25; G0378

== ENCOUNTER 2025-03-07 13:30 | Inpatient (IN) | payer OTHER ==
[2025-03-07 15:43] LABS: ABSOLUTE IMMATURE GRANULOCYTES 0.01 x10^3/uL (0.0-0.031); BASOPHILS # 0.03 x10^3/uL (0.01-0.08); EOSINOPHIL % 0.1 % (0.7-5.8); EOSINOPHILS # 0.01 x10^3/uL (0.04-0.36); MCHC 31.8 g/dl (32.2-35.5); MEAN CELL VOLUME 89.0 fl (79.4-94.8); MEAN PLT VOLUME 9.2 fl (9.4-12.3); MONOCYTE # 1.03 x10^3/uL (0.24-0.86); MONOCYTE % 12.7 % (4.7-12.5); RDW 12.5 % (12.5-17.0)
[2025-03-07 15:59] LABS: GLUCOSE,RANDOM 96.0 mg/dL (74-106); TOT PROT 6.6 g/dl (6.4-8.2)
[2025-03-07 16:00] LABS: CO2 24.0 mmol/L (21-32)
[2025-03-07 16:02] LABS: ALK PHOS 92.0 U/L (40-150)
[2025-03-07 16:05] LABS: CREATININE 0.68 mg/dL (0.55-1.3); SGOT/AST 110.0 U/L (5-34); SGPT/ALT 17.0 U/L (0-55)
[2025-03-07 16:23] LABS: HCV DIAGNOSTIC IN-HOUSE W/RFLX NON-REACTIVE (NONREACTIVE)
[2025-03-07 16:24] LABS: HIV INTERPRETATION NEGATIVE (NEGATIVE)
[2025-03-07] MEDS: SODIUM CHLORIDE 0.9% 500 ML INFUS.BAG IV ONE (18:39)
[2025-03-07] MEDS ORDERED: levETIRAcetam 500 MG/5 ML INJECTION VIAL IVPB ONE (19:41)
[2025-03-07] MEDS: levETIRAcetam 500 MG/5 ML INJECTION VIAL IVPB ONE (20:11)
[2025-03-07 20:47] LABS: EPI CELLS 8 /uL (0-25.1); HYALINE CASTS 3 /uL (0-3.1); URINE APPEARANCE CLEAR; URINE BACTERIA 9 /uL (0-1359); URINE BILIRUBIN NEGATIVE (NEGATIVE); URINE COLOR YELLOW; URINE GLUCOSE (UA) NEGATIVE (NEGATIVE); URINE KETONE 1+ (NEGATIVE); URINE LEUK ESTERASE NEGATIVE (NEGATIVE); URINE NITRITE NEGATIVE (NEGATIVE); URINE PROTEIN 2+ (NEGATIVE); URINE UROBILINOGEN 1.0 mg/dL (0.2-1.0); URINE WBC 19 /uL (0-25.8)
[2025-03-07 22:02] LABS: URINE RBC 21.9 /uL (0-23.9)
[2025-03-07] MEDS: SODIUM CHLORIDE 1,000 ML IV SCH (23:28)
[2025-03-08] MEDS ORDERED: HEPARIN NA (PORCINE) 5,000 UNITS/ML 1ML VIAL ONE (06:27)
[2025-03-08] MEDS ORDERED: LEVOTHYROXINE NA 75 MCG TABLET (FP) ONE (06:32)
[2025-03-08] MEDS: HEPARIN NA (PORCINE) 5,000 UNITS/ML 1ML VIAL SQ SCH (06:36)
[2025-03-08] MEDS: LEVOTHYROXINE NA 75 MCG TABLET (FP) PO SCH (06:36)
[2025-03-08 07:10] LABS: ABSOLUTE IMMATURE GRANULOCYTES 0.01 x10^3/uL (0.0-0.031); BASOPHILS # 0.05 x10^3/uL (0.01-0.08); EOSINOPHIL % 1.9 % (0.7-5.8); EOSINOPHILS # 0.10 x10^3/uL (0.04-0.36); MCHC 31.5 g/dl (32.2-35.5); MEAN CELL VOLUME 91.4 fl (79.4-94.8); MEAN PLT VOLUME 9.4 fl (9.4-12.3); MONOCYTE # 0.54 x10^3/uL (0.24-0.86); MONOCYTE % 10.4 % (4.7-12.5); RDW 12.6 % (12.5-17.0)
[2025-03-08 07:33] LABS: GLUCOSE,RANDOM 81.0 mg/dL (74-106)
[2025-03-08 07:34] LABS: TOT PROT 5.6 g/dl (6.4-8.2)
[2025-03-08 07:35] LABS: CO2 24.0 mmol/L (21-32)
[2025-03-08 07:39] LABS: SGOT/AST 116.0 U/L (5-34); SGPT/ALT 20.0 U/L (0-55)
[2025-03-08 07:40] LABS: ALK PHOS 75.0 U/L (40-150); CREATININE 0.64 mg/dL (0.55-1.3)
[2025-03-08] MEDS: levETIRAcetam 500 MG TABLET (FP) PO SCH ×2 (09:18→21:52)
[2025-03-08] MEDS: MEMANTINE HCL 10 MG TABLET (FP) PO SCH (09:18)
[2025-03-08] MEDS: ASPIRIN COATED 81 MG TABLET.EC PO SCH (09:18)
[2025-03-08] MEDS ORDERED: SERTRALINE HCL 50 MG TABLET (FP) ONE (10:49)
[2025-03-08] MEDS ORDERED: CLOPIDOGREL BISULFATE 75 MG TABLET (FP) ONE (10:49)
[2025-03-08] MEDS: CLOPIDOGREL BISULFATE 75 MG TABLET (FP) PO SCH (10:50)
[2025-03-08] MEDS: SERTRALINE HCL 25 MG TABLET (FP) PO SCH (10:50)
[2025-03-08] MEDS: SODIUM CHLORIDE 1,000 ML IV SCH (17:53)
[2025-03-08] MEDS: ROSUVASTATIN CA 20 MG TABLET PO SCH (21:52)
[2025-03-08] MEDS: DONEPEZIL HCL 5 MG TABLET (FP) PO SCH (21:53)
[2025-03-08] MEDS: PATIENT'S OWN MEDICATION (NON-FORMULARY) (Mirabegron [Mirabegron Er] 25 MG Tab.Er.24h) PO SCH (21:58)
[2025-03-08] MEDS ORDERED: ROSUVASTATIN CA 20 MG TABLET PO SCH (22:00)
[2025-03-08] MEDS ORDERED: DONEPEZIL HCL 5 MG TABLET (FP) PO SCH (22:00)
[2025-03-09] MEDS: LEVOTHYROXINE NA 75 MCG TABLET (FP) PO SCH (06:05)
[2025-03-09 07:59] LABS: MCHC 31.4 g/dl (32.2-35.5); MEAN CELL VOLUME 90.4 fl (79.4-94.8); MEAN PLT VOLUME 9.8 fl (9.4-12.3); RDW 12.6 % (12.5-17.0)
[2025-03-09 08:52] LABS: GLUCOSE,RANDOM 94.0 mg/dL (74-106)
[2025-03-09 08:53] LABS: CO2 27.0 mmol/L (21-32)
[2025-03-09 08:58] LABS: CREATININE 0.64 mg/dL (0.55-1.3)
[2025-03-09] MEDS: SERTRALINE HCL 25 MG TABLET (FP) PO SCH (10:30)
[2025-03-09] MEDS: MEMANTINE HCL 10 MG TABLET (FP) PO SCH (10:30)
[2025-03-09] MEDS: ASPIRIN COATED 81 MG TABLET.EC PO SCH (10:30)
[2025-03-09] MEDS: CLOPIDOGREL BISULFATE 75 MG TABLET (FP) PO SCH (10:31)
[2025-03-09] MEDS: POTASSIUM CHLORIDE ORAL LIQUID 20 MEQ/15 ML PO SCH (14:59)
[2025-03-09 16:27] VITALS: BMI 26.4
[2025-03-09] MEDS: MIRABEGRON 25 MG PO SCH (16:28)
[2025-03-10 01:56] VITALS: PULSE 74
[2025-03-10 07:43] VITALS: BP 130/67; RESP 18; TEMP 97.5
[2025-03-10 08:14] LABS: ABSOLUTE IMMATURE GRANULOCYTES 0.01 x10^3/uL (0.0-0.031); BASOPHILS # 0.04 x10^3/uL (0.01-0.08); EOSINOPHIL % 5.4 % (0.7-5.8); EOSINOPHILS # 0.24 x10^3/uL (0.04-0.36); MCHC 32.4 g/dl (32.2-35.5); MEAN CELL VOLUME 88.7 fl (79.4-94.8); MEAN PLT VOLUME 9.9 fl (9.4-12.3); MONOCYTE # 0.42 x10^3/uL (0.24-0.86); MONOCYTE % 9.4 % (4.7-12.5); RDW 12.4 % (12.5-17.0)
[2025-03-10 09:03] LABS: GLUCOSE,RANDOM 90.0 mg/dL (74-106); TOT PROT 5.2 g/dl (6.4-8.2)
[2025-03-10 09:05] LABS: CO2 27.0 mmol/L (21-32)
[2025-03-10 09:06] LABS: ALK PHOS 74.0 U/L (40-150)
[2025-03-10 09:09] LABS: CREATININE 0.59 mg/dL (0.55-1.3); SGOT/AST 80.0 U/L (5-34); SGPT/ALT 27.0 U/L (0-55)
== END 2025-03-10 12:57 | disposition home health service (06) | DRG 884 ==
LOC: JER 13:30 → JERBED 17:10 → OBSVTOIN 20:23 → J8W 03-08 14:41
PROVIDERS: ADMIT Internal Medicine; ATTEND Nurse Practitioner Acute Care
DX: F03.90 Unspecified dementia, unspecified severity, without behavioral disturbance, psychotic disturbance, mood disturbance, and anxiety (principal); M62.82 Rhabdomyolysis; I24.89 Other forms of acute ischemic heart disease; R29.6 Repeated falls; G40.909 Epilepsy, unspecified, not intractable, without status epilepticus; E78.5 Hyperlipidemia, unspecified; I25.10 Atherosclerotic heart disease of native coronary artery without angina pectoris; N31.9 Neuromuscular dysfunction of bladder, unspecified; E03.9 Hypothyroidism, unspecified
CPT/HCPCS: 36415; 70450-TC; 71045-TC-FY; 72125-TC; 72170-TC-FY; 80048; 80053; 80177; 81003; 82550; 83735; 84100; 84146; 84484; 85025; 85027; 86803; 87086; 87389; 87637-QW; 93005; 93010; 97116-GP; 97161-GP; 99285-25; G0378